=== PATIENT | female | born 1935 | race Caucasian/White ===

== ENCOUNTER 2018-10-02 22:08 | Emergency (ER) | payer MEDICARE ==
[~2018-10-02] VITALS: Ht 180.3 cm; Wt 95.3 kg
[~2018-10-02 22:08] MED LIST: ACTONEL35 MG; ARICEPT5 MG PO; ASPIRIN81 M1; ASPIRIN81 MG PO; ATORVASTATIN CA80 MG; CALCIUM 500+D1 EACH PO; CALTRATE 600 W1 EACH; CELEBREX100 MG PO; CLONIDINE HCL0.1 MG PO; CYCLOBENZAPRINE5 MG PO; EFFEXOR XR150 MG; ENALAPRIL MALE2.5 MG PO; FISH OIL 1,4001 EACH; LIDODERM700 MG TOP; MELATONIN3 M1; METFORMIN HCL1000 MG; MIRALAX119 GM; MYRBETRIQ50 MG PO; NAMENDA10 MG PO; OMEPRAZOLE40 MG PO; OSTEO BI-FLEX1 EAC1; PLAVIX75 MG PO; QUETIAPINE FUMA25 MG; ULTRAM50 MG PO; VENLAFAXINE HCL75 M2 PO; VESICARE5 MG PO; VITAMIN D250000 UNIT PO; VITAMIN D5000 UNIT
--- OUTSIDE RECORDS SUMMARY | 2018-10-02 22:12 | XMS REPORT | Continuity of Care Document ---
Author Author [facility] Interface Address Unknown Phone Unavailable Problems Problem Status Onset Date Classification Date Reported Comments Source CVA Active 02/19/2017 [facility] ACUTE EMBOLIC STROKE Active 02/19/2017 [facility] STROKE Active 02/19/2017 [facility] 787.20 Active 06/05/2014 [facility] UNK Active 06/05/2014 [facility] Allergic rhinitis Resolved Problem 03/13/2017 [facility] Anemia Resolved Problem 03/13/2017 [facility] Bilateral hearing loss Resolved Problem 03/13/2017 [facility] Dementia Resolved Problem 03/13/2017 [facility] DM (<span [id number]</span>) Resolved Problem 03/13/2017 [facility] Dysphagia Resolved Problem 03/13/2017 [facility] Fatigue Resolved Problem 03/13/2017 [facility] GERD - Gastro-esophageal reflux disease Resolved Problem 03/13/2017 [facility] HLD - Hyperlipidemia Resolved Problem 03/13/2017 [facility] HTN - Hypertension Resolved Problem 03/13/2017 [facility] Impacted cerumen<sup>1</sup> Resolved Problem 03/13/2017 Left ear [facility] Osteoporosis Resolved Problem 03/13/2017 [facility] Total Urinary Incontinence Resolved Problem 03/13/2017 [facility] Transient ischemic attack Resolved Problem 03/13/2017 [facility] Vitamin D insufficiency Resolved Problem 03/13/2017 [facility] Final: Other cerebrovascular disease 03/13/2017 [facility] Ischemic stroke Active Problem 03/13/2017 [facility] OTHER CEREBROVASCULAR DISEASE Active [facility] CEREBRAL INFARCTION, UNSPECIFIED Active [facility] Medications Medication Details Route Status Patient Instructions Ordering Provider Order Date Source Hydralazine Hydrochloride 10 MG Oral Tablet 10 mg=1 tab, PO, Q8H, # 90 tab, 0 Refill(s), Pharmacy: [facility] [place] [facility] Active 03/10/2017 [facility] Ergocalciferol 28117 UNT Oral Capsule 50,000 IntlUnit=1 cap, PO, qWeek, after completion of 5 doses, take 2000 IU of Vitamin D daily., # 5 cap, 0 Refill(s), Pharmacy: [facility] [place] [facility]3 Active 03/10/2017 [facility] enalapril 10 mg oral tablet 10 mg=1 tab, PO, Q12H, # 60 tab, 0 Refill(s), Pharmacy: [facility] Pharmacy [facility] Active 03/10/2017 [facility] atorvastatin 10 mg oral tablet 10 mg=1 tab, PO, Bedtime, # 30 tab, 0 Refill(s), Pharmacy: [facility] Pharmacy [facility] Active 03/10/2017 [facility] Tramadol 25 mg, 0.5 tab, Route: PO, Drug form: TAB, ONCE, Dosing Weight 92.472, kg, Start date: 03/09/17 14:49:00 CDT, Stop date: 03/09/17 14:49:00 CDTNotes: Not to exceed 400mg/day. (Same As: Ultram) Inactive 03/09/2017 [facility] tramadol hydrochloride 50 MG Oral Tablet 50 mg, 1 tab, Route: PO, Drug form: TAB, ONCE, Dosing Weight 92.472, kg, Start date: 03/08/17 11:58:00 CDT, Stop date: 03/08/17 11:58:00 CDTNotes: Not to exceed 400mg/day. (Same As: Ultram) Inactive 03/08/2017 [facility] Hydralazine 10 mg, 1 tab, Route: PO, Drug form: TAB, Q8H, Dosing Weight 92.472, kg, Start date: 03/06/17 8:00:00 CDT, Duration: 30 day, Stop date: 04/05/17 0:00:00 CSTNotes: (Same as: Apresoline) May interfere w/enteral feedings. Take With Food No Longer Active 03/06/2017 [facility] Docusate Sodium 100 MG Oral Capsule [Colace] 100 mg, 1 cap, Route: PO, Drug form: CAP, Bedtime, Dosing Weight 92.472, kg, Start date: 03/05/17 21:00:00 CDT, Duration: 30 day, Stop date: 04/03/17 21:00:00 CSTNotes: (Same as: Colace) (Do Not Crush) No Longer Active 03/06/2017 [facility] senna 8.6 mg oral tablet 8.6 mg, 1 tab, Route: PO, Drug Form: TAB, Dosing Weight 92.472, kg, BID, PRN as needed for constipation, Start date: 03/05/17 20:09:00 CDT, Duration: 30 day, Stop date: 04/04/17 20:08:00 CSTNotes: (Same as: Senokot) No Longer Active 03/06/2017 [facility] Vasotec 10 mg, 1 tab, Route: PO, Drug form: TAB, Q12H, Dosing Weight 86.364, kg, Start date: 03/04/17 21:00:00 CDT, Duration: 30 day, Stop date: 04/03/17 9:00:00 CSTNotes: (Same as: Vasotec) No Longer Active 03/05/2017 [facility] Dextrose 50% Syringe 25 mL, Route: IVP, Dosing Weight 86.364 kg, Start date: 03/04/17 13:45:00 CDT, Duration: 30 day, Stop date: 04/03/17 12:44:00 [employer], PRN Blood Glucose Results No Longer Active 03/04/2017 [facility] Vitamin D2 50,000 IntlUnit, 1 cap, Route: PO, Drug form: CAP, qWeek, Dosing Weight 86.364, kg, Start date: 02/26/17 10:00:00 CDT, Duration: 5 doses or times, Stop date: 03/26/17 9:00:00 CDTNotes: (Same as: Nguyen min D) "Do Not Crush" No Longer Active 02/26/2017 [facility] Vasotec 5 mg, 2 tab, Route: PO, Drug form: TAB, BID, Dosing Weight 86.364, kg, Start date: 02/25/17 9:00:00 CDT, Duration: 30 day, Stop date: 03/26/17 17:00:00 CDTNotes: (Same as: Vasotec) No Longer Active 02/25/2017 [facility] Lovenox 40 mg, 0.4 mL, Route: SUB-Q, Drug form: INJ, Daily, Dosing Weight 86.364, kg, Start date: 02/25/17 9:00:00 CDT, Duration: 30 day, Stop date: 03/26/17 9:00:00 CDTNotes: (Same as: Lovenox) No Longer Active 02/25/2017 [facility] aspirin 81 mg tablet, chewable 81 mg, 1 tab, Route: PO, Drug form: CHEWTAB, Daily, Dosing Weight 86.364, kg, Start date: 02/25/17 9:00:00 CDT, Duration: 30 day, Stop date: 03/26/17 9:00:00 CDTNotes: Take with food. No Longer Active 02/25/2017 [facility] Pt's own Mirabegron XR (Myrbetriq) 50 mg tab Pt's own Mirabegron XR (Myrbetriq) 50 mg tab, 1 tab, Drug form: MISC, Route: PO, Daily, 02/25/17 9:00:00 CDT, Duration: 30 day, Stop date: 03/26/17 9:00:00 CDT No Longer Active 02/25/2017 [facility] hydrocortisone acetate 25 MG Rectal Suppository 25 mg, 1 supp, Route: HI, BID, Drug form: SUPP, PRN Other -See Comment, Start date: 02/24/17 21:00:00 CDT, Stop date: 03/26/17 20:00:00 CDT, prnNotes: (Same as: Anusol-HC, Hemorrhoidal HC) No Longer Active 02/25/2017 [facility] famotidine 20 mg, 1 tab, Route: PO, Drug form: TAB, Bedtime, Dosing Weight 86.364, kg, Start date: 02/24/17 21:00:00 CDT, Duration: 30 day, Stop date: 03/25/17 21:00:00 CDTNotes: (Same as: Pepcid) No Longer Active 02/25/2017 [facility] Aricept 10 mg, 2 tab, Route: PO, Drug form: TAB, Bedtime, Dosing Weight 86.364, kg, Start date: 02/24/17 21:00:00 CDT, Duration: 30 day, Stop date: 03/25/17 21:00:00 CDTNotes: (Same as: Aricept) No Longer Active 02/25/2017 [facility] Pt's own Memantine XR (Namenda XR) 21mg capsule Pt's own Memantine XR (Namenda XR) 21mg capsule, 1 cap, Drug form: MISC, Route: PO, Bedtime, 02/24/17 21:00:00 CDT, Duration: 30 day, Stop date: 03/25/17 21:00:00 CDT No Longer Active 02/25/2017 [facility] Lipitor 10 mg, 1 tab, Route: PO, Drug form: TAB, Bedtime, Dosing Weight 86.364, kg, Start date: 02/24/17 21:00:00 CDT, Duration: 30 day, Stop date: 03/25/17 21:00:00 CDTNotes: (Same As: Lipitor) No Longer Active 02/25/2017 [facility] hydrocortisone acetate 25 MG Rectal Suppository [Anusol HC] 25 mg, 1 supp, Route: HI, BID, Drug form: SUPP, Start date: 02/24/17 20:00:00 CDT, Duration: 30 day, Stop date: 03/26/17 9:00:00 CDTNotes: (Same as: Anusol- HC, Hemorrhoidal HC) Inactive 02/25/2017 [facility] glucagon 1 mg, Route: IM, Drug form: PDR/INJ, PRN, Dosing Weight 86.364, kg, PRN Blood Glucose Results, Start date: 02/24/17 17:22:00 CDT, Duration: 30 day, Stop date: 03/26/17 17:21:00 CDT No Longer Active 02/24/2017 [facility] Dextrose 50% Syringe 25 gm, 50 mL, Route: IVP, Drug Form: INJ, Dosing Weight 86.364, kg, PRN, PRN Blood Glucose Results, Start date: 02/24/17 17:21:00 CDT, Duration: 30 day, Stop date: 03/26/17 17:20:00 CDT No Longer Active 02/24/2017 [facility] Humalog 6 unit, 0.06 mL, Route: SUB-Q, Drug form: SOLN, TID-Before Meals, Dosing Weight 86.364, kg, PRN Blood Glucose Results, Start date: 02/24/17 17:19:00 CDT, Duration: 30 day, Stop date: 03/26/17 17:18:00 C DTNotes: Roll in palms of hands gently; Do not shake `vigorously. (Same as: Humalog ) "Single Patient Use Only " WASTE: F/P - Black; E - Municipal Trash Bin Stable for 28 days at room temperature. Expires in days from Date No Longer Active 02/24/2017 [facility] Humalog 4 unit, 0.04 mL, Route: SUB-Q, Drug form: SOLN, TID-Before Meals, Dosing Weight 86.364, kg, PRN Blood Glucose Results, Start date: 02/24/17 17:18:00 CDT, Duration: 30 day, Stop date: 03/26/17 17:17:00 C DTNotes: Roll in palms of hands gently; Do not shake `vigorously. (Same as: Humalog ) "Single Patient Use Only " WASTE: F/P - Black; E - Municipal Trash Bin Stable for 28 days at room temperature. Expires in days from Date No Longer Active 02/24/2017 [facility] Humalog 10 unit, 0.1 mL, Route: SUB-Q, Drug form: SOLN, TID-Before Meals, Dosing Weight 86.364, kg, PRN Blood Glucose Results, Start date: 02/24/17 17:17:00 CDT, Duration: 30 day, Stop date: 03/26/17 17:16:00 C DTNotes: Roll in palms of hands gently; Do not shake `vigorously. (Same as: Humalog ) "Single Patient Use Only " WASTE: F/P - Black; E - Municipal Trash Bin Stable for 28 days at room temperature. Expires in days from Date No Longer Active 02/24/2017 [facility] SEROquel 12.5 mg, 0.5 tab, Route: PO, Drug form: TAB, Q12H, Dosing Weight 86.364, kg, PRN Agitation, Start date: 02/24/17 17:12:00 CDT, Duration: 30 day, Stop date: 03/26/17 17:11:00 CDTNotes: (Same as: SEROquel) No Longer Active 02/24/2017 [facility] Acetaminophen 650 mg, 2 tab, Route: PO, Drug form: TAB, Q4H, Dosing Weight 86.364, kg, PRN Pain Score 1-3, Start date: 02/24/17 15:24:00 CDT, Duration: 30 day, Stop date: 03/26/17 15:23:00 CDTNotes: Do not exceed 4 gm/day. (Same as: Tylenol) No Longer Active 02/24/2017 [facility] atorvastatin 10 mg oral tablet 10 mg=1 tab, PO, Bedtime, 0 Refill(s) On Hold 02/24/2017 [facility] Zofran 4 mg, 2 mL, Route: IV, Drug form: INJ, Q6H, Dosing Weight 86.364, kg, PRN Nausea, Start date: 02/22/17 16:44:00 CDT, Duration: 30 day, Stop date: 03/24/17 16:43:00 CDTNotes: (Same as: Zofran) MEDICATION WASTE Product Size: 4 mg Product Wasted: ___ mg No Longer Active 02/22/2017 [facility] Fluconazole 150 mg, 1.5 tab, Route: PO, Drug form: TAB, Daily, Dosing Weight 86.364, kg, Start date: 02/22/17 9:00:00 CDT, Duration: 5 day, Stop date: 02/26/17 9:00:00 CDTNotes: (Same as: Diflucan) No Longer Active 02/22/2017 [facility] 24 HR mirabegron 50 MG Extended Release Tablet [Myrbetriq] 50 mg, 1 tab, Route: PO, Daily, Dosing Weight 86.364, kg, Start date: 02/22/17 9:00:00 CDT, Duration: 30 day, Stop date: 03/23/17 9:00:00 CDT No Longer Active 02/22/2017 [facility] Pt's own Memantine XR (Namenda XR) 21mg capsule Pt's own Memantine XR (Namenda XR) 21mg capsule, 1 cap, Drug form: MISC, Route: PO, Bedtime, 02/21/17 21:00:00 CDT, Duration: 30 day, Stop date: 03/22/17 21:00:00 CDT No Longer Active 02/22/2017 [facility] Pt's own Mirabegron XR (Myrbetriq) 50 mg tab Pt's own Mirabegron XR (Myrbetriq) 50 mg tab, 1 tab, Drug form: MISC, Route: PO, Daily, 02/21/17 13:00:00 CDT, Duration: 30 day, Stop date: 03/23/17 9:00:00 CDT No Longer Active 02/21/2017 [facility] 24 HR mirabegron 50 MG Extended Release Tablet [Myrbetriq] 50 mg=1 tab, PO, Daily, # 30 tab, 0 Refill(s) On Hold 02/21/2017 [facility] Lovenox 40 mg, 0.4 mL, Route: SUB-Q, Drug form: INJ, [id number], Dosing Weight 86.364, kg, Start date: 02/21/17 9:30:00 CDT, Duration: 30 day, Stop date: 03/22/17 9:30:00 CDTNotes: (Same as: Lovenox) No Longer Active 02/21/2017 [facility] Aspirin 81 mg, 1 tab, Route: PO, Drug form: CHEWTAB, Daily, Dosing Weight 86.364, kg, Start date: 02/21/17 9:00:00 CDT, Duration: 30 day, Stop date: 03/22/17 9:00:00 CDTNotes: Take with food. No Longer Active 02/21/2017 [facility] Memantine 21 mg, Route: PO, Drug form: ERCAP, Bedtime, Dosing Weight 86.364, kg, Start date: 02/20/17 21:00:00 CDT, Duration: 30 day, Stop date: 03/21/17 21:00:00 CDT No Longer Active 02/21/2017 [facility] donepezil 10 mg, 2 tab, Route: PO, Drug form: TAB, Bedtime, Dosing Weight 86.364, kg, Start date: 02/20/17 21:00:00 CDT, Duration: 30 day, Stop date: 03/21/17 21:00:00 CDTNotes: (Same as: Aricept) No Longer Active 02/21/2017 [facility] Memantine 21mg capsule Memantine 21mg capsule, 1 cap, Drug form: MISC, Route: PO, Bedtime, 02/20/17 21:00:00 CDT, Duration: 30 day, Stop date: 03/21/17 21:00:00 CDT No Longer Active 02/21/2017 [facility] Lipitor 10 mg, Route: PO, Drug form: TAB, Bedtime, Dosing Weight 86.364, kg, Start date: 02/20/17 21:00:00 CDT, Duration: 30 day, Stop date: 03/21/17 21:00:00 CDT Inactive 02/21/2017 [facility] enalapril 5 mg, 2 tab, Route: PO, Drug form: TAB, BID, Dosing Weight 86.364, kg, Start date: 02/20/17 17:00:00 CDT, Duration: 30 day, Stop date: 03/22/17 9:00:00 CDTNotes: (Same as: Vasotec) No Longer Active 02/20/2017 [facility] Celebrex 200 mg, 1 cap, Route: PO, Drug form: CAP, BID, Dosing Weight 86.364, kg, Start date: 02/20/17 17:00:00 CDT, Duration: 30 day, Stop date: 03/22/17 9:00:00 CDTNotes: NSAID. Please check indication. Not for seizure. (Same As: CeleBREX) Inactive 02/20/2017 [facility] Omeprazole See Instructions, 2.5 mg PO Daily, 0 Refill(s) On Hold 02/20/2017 [facility] quetiapine 12.5 mg, 0.5 tab, Route: PO, Drug form: TAB, Q12H, Dosing Weight 86.364, kg, PRN Agitation, Start date: 02/20/17 15:47:00 CDT, Duration: 30 day, Stop date: 03/22/17 15:46:00 CDTNotes: (Same as: SEROq uel) No Longer Active 02/20/2017 [facility] influenza virus vaccine, inactivated 0.5 mL, Route: IM, Drug Form: SUSP, Daily, Start date: 02/20/17 9:00:00 CDT, Duration: 1 doses or times, Stop date: 02/20/17 9:00:00 CDTNotes: (Same as: Fluzone Quadrivalent, Fluarix Quadrivalent) For 3 years of age and older (0.5 mL IM) Shake well before use Inactive 02/20/2017 [facility] Streptococcus pneumoniae serotype 1 capsular antigen diphtheria [id number] protein conjugate vaccine / Streptococcus pneumoniae serotype 14 capsular antigen diphtheria [id number] protein conjugate vaccine / Streptococcus pneumoniae serotype 18C capsular antigen d 0.5 mL, Route: IM, Drug Form: INJ, Daily, Start date: 02/20/17 9:00:00 CDT, Duration: 1 doses or times, Stop date: 02/20/17 9:00:00 CDTNotes: Shake well prior to use (Same as: Prevnar 13) Inactive 02/20/2017 [facility] Saline Flush 0.9% 10 ml, Route: IVP, Drug Form: INJ, Dosing Weight 86.364, kg, Q12H, Start date: 02/20/17 9:00:00 CDT, Duration: 30 day, Stop date: 03/21/17 21:00:00 CDTNotes: (Same as: BD Posiflush) No Longer Active 02/20/2017 [facility] clopidogrel 75 mg, 1 tab, Route: PO, Drug form: TAB, Daily, Dosing Weight 86.364, kg, Start date: 02/20/17 9:00:00 CDT, Duration: 30 day, Stop date: 03/21/17 9:00:00 CDTNotes: (Same As: Plavix) No Longer Active 02/20/2017 [facility] Famotidine 20 mg, 1 tab, Route: PO, Drug form: TAB, Q12H, Dosing Weight 86.364, kg, Start date: 02/20/17 9:00:00 CDT, Duration: 30 day, Stop date: 03/21/17 21:00:00 CDTNotes: (Same as: Pepcid) No Longer Active 02/20/2017 [facility] Hydralazine 10 mg, 0.5 mL, Route: IV, Drug form: INJ, Q6H, Dosing Weight 86.364, kg, PRN Hypertension, Start date: 02/20/17 8:28:00 CDT, Duration: 30 day, Stop date: 03/22/17 8:27:00 CDTNotes: (Same as: Apresoline) Push over 5 minutes No Longer Active 02/20/2017 [facility] Insulin Lispro 4 unit, 0.04 mL, Route: SUB-Q, Drug form: SOLN, Bedtime, Dosing Weight 86.364, kg, PRN Blood Glucose Results, Start date: 02/20/17 8:27:00 CDT, Duration: 30 day, Stop date: 03/22/17 8:26:00 CDTNotes: Roll in palms of hands gently; Do not shake `vigorously. (Same as: Humalog ) "Single Patient Use Only " WASTE: F/P - Black; E - Municipal Trash Bin Stable for 28 days at room temperature. Expires in days from Date No Longer Active 02/20/2017 [facility] Glucagon 1 mg, Route: IM, Drug form: PDR/INJ, PRN, Dosing Weight 86.364, kg, PRN Blood Glucose Results, Start date: 02/20/17 8:27:00 CDT, Duration: 30 day, Stop date: 03/22/17 8:26:00 CDT No Longer Active 02/20/2017 [facility] Dextrose 50% Syringe 25 gm, 50 mL, Route: IVP, Drug Form: INJ, Dosing Weight 86.364, kg, PRN, PRN Blood Glucose Results, Start date: 02/20/17 8:27:00 CDT, Duration: 30 day, Stop date: 03/22/17 8:26:00 CDT No Longer Active 02/20/2017 [facility] Enoxaparin 40 mg, 0.4 mL, Route: SUB-Q, Drug form: INJ, [id number], Dosing Weight 86.364, kg, Start date: 02/20/17 0:00:00 CDT, Duration: 30 day, Stop date: 03/21/17 0:00:00 CDTNotes: (Same as: Lovenox) No Longer Active 02/20/2017 [facility] Saline Flush 0.9% 10 ml, Route: IVP, Drug Form: INJ, Dosing Weight 86.364, kg, PRN, PRN Line Flush, Start date: 02/19/17 23:03:00 CDT, Duration: 30 day, Stop date: 03/21/17 23:02:00 CDTNotes: (Same as: BD Posiflush) No Longer Active 02/20/2017 [facility] Labetalol 10 mg, 2 mL, Route: IVP, Drug form: INJ, Q10Min, Dosing Weight 86.364, kg, PRN Hypertension, For SBP > 180 mmHg and/or DBP > 105 mmHg, Priority: Routine, Start date: 02/19/17 23:03:00 CDT, Duration: 30 day, Stop date: 03/21/17 23:02:00 CDTNotes: (Same as: Normodyne, Trandate) Push over 2 minutes Give bolus over 2-3 minutes. No Longer Active 02/20/2017 [facility] Sodium Chloride 0.9% (Bolus) IV 250 mL, 250 ml/hr, Infuse Over: 1 hr, Route: IV, 250, Drug form: INJ, ONCE, Priority: STAT, Dosing Weight 86.364 kg, Start date: 02/19/17 23:03:00 CDT, Stop date: 02/19/17 23:03:00 CDT No Longer Active 02/20/2017 [facility] QUEtiapine 25 mg oral tablet 12.5 mg=0.5 tab, PO, Q12H, PRN Other -See Comment, 0 Refill(s) On Hold 02/19/2017 [facility] celecoxib 200 MG Oral Capsule [Celebrex] 200 mg=1 cap, PO, BID, 0 Refill(s) No Longer Active 02/19/2017 [facility] fluconazole 150 mg oral tablet 150 mg=1 tab, PO, ONCE, 0 Refill(s) No Longer Active 02/19/2017 [facility] 24 HR Memantine hydrochloride 21 MG Extended Release Capsule [Namenda] 21 mg=1 cap, PO, Bedtime, 0 Refill(s) On Hold 02/19/2017 [facility] Aspirin 300 MG Rectal Suppository 300 mg, 1 supp, Route: HI, Drug form: SUPP, ONCE, Dosing Weight 85.455, kg, Priority: STAT, Start date: 02/19/17 17:33:00 CDT, Stop date: 02/19/17 17:33:00 CDTNotes: Refrigerate. Inactive 02/19/2017 [facility] Saline Flush 0.9% 10 mL, Route: IVP, Drug Form: INJ, Dosing Weight 85.455, kg, PRN, PRN Line Flush, Start date: 02/19/17 17:16:00 CDT, Duration: 30 day, Stop date: 03/21/17 17:15:00 CDTNotes: preservative free. No Longer Active 02/19/2017 [facility] Sodium Chloride 0.9% (Bolus) IV 1,000 mL, 1000 ml/hr, Infuse Over: 1 hr, Route: IV, 1,000, Drug form: INJ, ONCE, Priority: STAT, Dosing Weight 85.455 kg, Start date: 02/19/17 17:16:00 CDT, Duration: 1 doses or times, Stop date: 02/19/17 17:16:00 CDT Inactive 02/19/2017 [facility] venlafaxine 150 mg oral tablet, extended release 150 mg=1 tab, PO, Daily, # 30 tab, 0 Refill(s) Active 06/13/2014 [facility] Vitamin D3 5000 intl units oral capsule 0 Refill(s) Active 06/13/2014 [facility] solifenacin succinate 10 MG Oral Tablet [VESICARE] 10 mg=1 tab, PO, Daily, # 30 tab, 0 Refill(s) Active 06/13/2014 [facility] Memantine hydrochloride 10 MG Oral Tablet [Namenda] 10 mg=1 tab, PO, BID, # 60 tab, 0 Refill(s) Active 06/13/2014 [facility] Fish Oil 1200 mg oral capsule 0 Refill(s) Active 06/13/2014 [facility] enalapril 5 mg oral tablet 5 mg=1 tab, PO, Daily, # 30 tab, 0 Refill(s) Active 06/13/2014 [facility] donepezil 10 mg oral tablet 10 mg, PO, Daily, # 30 tab, 0 Refill(s) Active 06/13/2014 [facility] Centrum Silver oral tablet 1 tab, PO, Daily, # 30 tab, 0 Refill(s) Active 06/13/2014 [facility] atorvastatin 80 mg oral tablet 80 mg=1 tab, PO, Bedtime, # 30 tab, 0 Refill(s) Active 06/13/2014 [facility] aspirin 0 Refill(s) Active 06/13/2014 [facility] risedronate sodium 35 MG Oral Tablet [Actonel] 35 mg=1 tab, PO, qWeek, # 4 tab, 0 Refill(s) Active 06/13/2014 [facility] Allergies, Adverse Reactions, Alerts Substance Category Reaction Severity Reaction type Status Date Reported Comments Source sulfa drugs Assertion Drug allergy Active [facility] Immunizations Immunization Date Given Site Status Last Updated Comments Source pneumococcal 13-valent vaccine 02/20/2017 Right deltoid completed [facility] influenza virus vaccine, inactivated 02/20/2017 Left deltoid completed [facility] Results Order Name Results Value Reference Range Date Interpretation Comments Source HEMATOLOGY MPV 8.7 fL 7.4 - 10.4 03/08/2017 [facility] Platelet 267 K/CMM 133 - 450 03/08/2017 [facility] RDW 13.4 % 11.5 - 14.5 03/08/2017 [facility] MCHC 33.8 g/dL 32.0 - 36.0 03/08/2017 [facility] MCH 29.6 pg 27.0 - 31.0 03/08/2017 [facility] Hgb 12.9 g/dL 12.0 - 16.0 03/08/2017 [facility] MCV 87.7 fL 80.0 - 98.0 03/08/2017 [facility] Hct 38.2 % 36.0 - 48.0 03/08/2017 [facility] HEMATOLOGY WBC 7.9 K/CMM 3.7 - 10.4 03/08/2017 [facility] HEMATOLOGY RBC 4.35 M/CMM 4.20 - 5.40 03/08/2017 [facility] HEMATOLOGY Basophils 0.6 % 0.0 - 1.0 03/08/2017 [facility] HEMATOLOGY Segs-Bands # 4.8 K/CMM 1.5 - 8.1 03/08/2017 [facility] HEMATOLOGY Lymphocytes # 2.2 K/CMM 1.0 - 5.5 03/08/2017 [facility] Monocytes # 0.5 K/CMM 0.0 - 0.8 03/08/2017 [facility] HEMATOLOGY Eosinophils # 0.3 K/CMM 0.0 - 0.5 03/08/2017 [facility] HEMATOLOGY Monocytes 5.8 % 2.0 - 12.0 03/08/2017 [facility] HEMATOLOGY Segs 61.4 % 45.0 - 75.0 03/08/2017 [facility] HEMATOLOGY Eosinophils 4.1 % 0.0 - 4.0 03/08/2017 [facility] HEMATOLOGY Lymphocytes 28.1 % 20.0 - 40.0 03/08/2017 [facility] Phosphorus 2.8 mg/dL 2.5 - 4.5 03/07/2017 [facility] Magnesium Lvl 2.0 mg/dL 1.8 - 2.4 03/07/2017 [facility] BUN 21 mg/dL 7 - 22 03/07/2017 [facility] Glucose Lvl 130 mg/dL 70 - 99 03/07/2017 [facility] Chloride Lvl 108 meq/L 95 - 109 03/07/2017 [facility] Potassium Lvl 3.9 meq/L 3.5 - 5.1 03/07/2017 [facility] Sodium Lvl 142 meq/L 135 - 145 03/07/2017 [facility] Creatinine Lvl 1.00 mg/dL 0.50 - 1.40 03/07/2017 [facility] CO2 25 meq/L 24 - 32 03/07/2017 [facility] Calcium Lvl 9.6 mg/dL 8.5 - 10.5 03/07/2017 [facility] CHEM PANEL AGAP 12.9 meq/L 10.0 - 20.0 03/07/2017 [facility] CHEM PANEL eGFR 53 mL/min/1.73m2 03/07/2017 Result Comment: The eGFR is calculated using the CKD-EPI formula. In most young, healthy individuals the eGFR will be >90 mL/min/1.73m2. The eGFR declines with age. An eGFR of 60-89 may be normal in some populations, particularly the elderly, for whom the CKD-EPI formula has not been extensively validated. Use of the eGFR is not recommended in the following populations: Individuals with unstable creatinine concentrations, including patients and those with serious co-morbid conditions. Patients with extremes in muscle mass or diet. The data above are obtained from the National Kid[employer] Disease Education Program (NKDEP) which additionally recommends that when the eGFR is used in patients with extremes of body mass index for purposes of drug dosing, the eGFR should be multiplied by the estimated BMI. [facility] CHEM PANEL Vitamin D, 25-OH, Total 23.7 ng/mL 30.0 - 100.0 02/25/2017 [facility] CHEM PANEL Phosphorus 2.7 mg/dL 2.5 - 4.5 02/25/2017 [facility] CHEM PANEL Albumin Lvl 3.6 g/dL 3.5 - 5.0 02/25/2017 [facility] CHEM PANEL eGFR 53 mL/min/1.73m2 02/25/2017 Result Comment: The eGFR is calculated using the CKD-EPI formula. In most young, healthy individuals the eGFR will be >90 mL/min/1.73m2. The eGFR declines with age. An eGFR of 60-89 may be normal in some populations, particularly the elderly, for whom the CKD-EPI formula has not been extensively validated. Use of the eGFR is not recommended in the following populations: Individuals with unstable creatinine concentrations, including patients and those with serious co-morbid conditions. Patients with extremes in muscle mass or diet. The data above are obtained from the National Kidney Disease Education Program (NKDEP) which additionally recommends that when the eGFR is used in patients with extremes of body mass index for purposes of drug dosing, the eGFR should be multiplied by the estimated BMI. [facility] CHEM PANEL CO2 26 meq/L 24 - 32 02/25/2017 [facility] CHEM PANEL Chloride Lvl 108 meq/L 95 - 109 02/25/2017 [facility] CHEM PANEL Creatinine Lvl 1.00 mg/dL 0.50 - 1.40 02/25/2017 [facility] CHEM PANEL Potassium Lvl 4.0 meq/L 3.5 - 5.1 02/25/2017 [facility] CHEM PANEL Sodium Lvl 141 meq/L 135 - 145 02/25/2017 [facility] CHEM PANEL Calcium Lvl 9.9 mg/dL 8.5 - 10.5 02/25/2017 [facility] CHEM PANEL Glucose Lvl 135 mg/dL 70 - 99 02/25/2017 [facility] CHEM PANEL BUN 22 mg/dL 7 - 22 02/25/2017 [facility] CHEM PANEL AGAP 11.0 meq/L 10.0 - 20.0 02/25/2017 [facility] HEMATOLOGY INR 0.98 0.85 - 1.17 02/25/2017 [facility] HEMATOLOGY PTT 30.9 s 22.9 - 35.8 02/25/2017 [facility] HEMATOLOGY PT 13.2 s 12.0 - 14.7 02/25/2017 [facility] HEMATOLOGY RDW 13.1 % 11.5 - 14.5 02/25/2017 [facility] MCHC 33.6 g/dL 32.0 - 36.0 02/25/2017 [facility] HEMATOLOGY RBC 4.47 M/CMM 4.20 - 5.40 02/25/2017 [facility] Hgb 13.0 g/dL 12.0 - 16.0 02/25/2017 [facility] HEMATOLOGY Platelet 270 K/CMM 133 - 450 02/25/2017 [facility] HEMATOLOGY MPV 9.1 fL 7.4 - 10.4 02/25/2017 [facility] MCH 29.2 pg 27.0 - 31.0 02/25/2017 [facility] Hct 38.8 % 36.0 - 48.0 02/25/2017 [facility] MCV 86.9 fL 80.0 - 98.0 02/25/2017 [facility] WBC 7.2 K/CMM 3.7 - 10.4 02/25/2017 [facility] HEMATOLOGY Eosinophils # 0.6 K/CMM 0.0 - 0.5 02/25/2017 [facility] Lymphocytes # 2.1 K/CMM 1.0 - 5.5 02/25/2017 [facility] HEMATOLOGY Segs 55.7 % 45.0 - 75.0 02/25/2017 [facility] HEMATOLOGY Monocytes 6.5 % 2.0 - 12.0 02/25/2017 [facility] Lymphocytes 28.8 % 20.0 - 40.0 02/25/2017 [facility] Eosinophils 8.5 % 0.0 - 4.0 02/25/2017 [facility] Monocytes # 0.5 K/CMM 0.0 - 0.8 02/25/2017 [facility] Basophils 0.5 % 0.0 - 1.0 02/25/2017 [facility] Segs-Bands # 4.0 K/CMM 1.5 - 8.1 02/25/2017 [facility] IMMUNOLOGY Prealbumin 28.9 mg/dL 18.0 - 45.0 02/25/2017 [facility] IMMUNOLOGY Prealbumin 24.7 mg/dL 18.0 - 45.0 02/24/2017 [facility] Carotid artery Doppler bilat US Carotid artery Doppler bilat US Patient Name: NII Ludwig ZAPATA : 1935; Age: 82 years y/o Female MR: [id number] CAROTID DOPPLER Clinical Indication: - left sided weakness Comparison: Left-sided weakness. The magnetic resonance imaging of the brain from today demonstrated an acute right coronal radiata infarct. The magnetic resonance imaging study of the brain performed today was reviewed. There are no prior carotid Doppler studies or other carotid studies available for review. TECHNIQUE: Castle-scale, color Doppler and spectral Doppler of the carotid arteries was performed. Any reported ICA stenoses indirectly reference the distal internal carotid diameter as the denominator for the stenosis measurement, utilizing consensus panel criteria. FINDINGS: CASTLE SCALE AND COLOR-FLOW: There are focal areas of linear plaquing bilaterally involving both common carotid arteries. There are small focal plaques throughout much of the left common carotid artery. There is no evidence of a significant stenosis. There is a small to moderate focal plaque involving the right carotid bulb with mild (on the order of 25%) stenosis by castle scale and color-flow imaging. There is a moderate plaque involving the left carotid bulb with mild (less than 30%) stenosis by castle scale and color-flow imaging. There is no evidence for hemodynamically significant stenosis by castle scale and color-flow imaging. * VELOCITY MEASUREMENTS RIGHT CAROTID SYSTEM : -Right internal carotid artery peak systolic velocity: Within normal limits, 67 cm/sec -ICA/CCA ratio (systolic velocity ratio): Within normal limits, 0.7 LEFT CAROTID SYSTEM : -Left internal carotid artery peak systolic velocity: Within normal limits, 72 cm/sec -ICA/CCA ratio (systolic velocity ratio): Within normal limits, 0.8 * VERTEBRAL ARTERIES: Both vertebral arteries were demonstrated. There is antegrade flow within both vertebral arteries. IMPRESSION: 1. There is scattered plaquing involving both common carotid arteries and focal plaque involving both internal carotid arteries. However, there is no evidence of a hemodynamically significant stenosis. By castle scale and color-flow imaging, there appear to be mild stenoses involving the carotid bulbs. Consensus panel Doppler US criteria for diagnosis of ICA stenosis: Stenosis (%) ICA PSV (cm/sec) ICA/CCA ratio <50 <125 <2.0 50-69 125-230 2.0-4.0 >70 but less than >230 >4.0 near occlusion Near occlusion High, low, or Variable undetectable SL: [id number] 02/20/2017 - - Read by: Scar Rocha MD Dictated Date/time: 02/20/17 12:48 Electronically Signed by: Scar Rocha MD 02/20/17 12:53 FINAL REPORT [facility] LIPIDS VLDL 48 02/20/2017 [facility] LIPIDS LDL (Calculated) 127 mg/dL <=99 mg/dL 02/20/2017 [facility] LIPIDS Trig 240 mg/dL <=149 mg/dL 02/20/2017 [facility] LIPIDS Chol 208 mg/dL <=199 mg/dL 02/20/2017 [facility] LIPIDS HDL 33 mg/dL >=61 mg/dL 02/20/2017 [facility] LIPIDS CHD Risk 6.30 3.90 - 5.80 02/20/2017 [facility] SPECIAL CHEMISTRY Hgb A1C 6.4 % <=5.6 % 02/20/2017 [facility] URINE AND STOOL UA Bili Negative *NA* (02/19/17 7:24 PM) Negative 02/20/2017 [facility] URINE AND STOOL UA Ketones Negative mg/dL Negative mg/dL 02/20/2017 [facility] URINE AND STOOL UA Sq Epi Occasional /LPF Few /LPF 02/20/2017 [facility] URINE AND STOOL UA Leuk Est Small *ABN* (02/19/17 7:24 PM) Negative 02/20/2017 [facility] URINE AND STOOL UA Nitrite Negative (02/19/17 7:24 PM) Negative 02/20/2017 [facility] URINE AND STOOL UA Blood Negative (02/19/17 7:24 PM) Negative 02/20/2017 [facility] URINE AND STOOL UA Amorph Kenia Occasional /HPF None Seen /HPF 02/20/2017 [facility] URINE AND STOOL UA Bacteria Occasional /HPF None Seen /HPF 02/20/2017 [facility] URINE AND STOOL UA RBC null 0 - 2 02/20/2017 [facility] URINE AND STOOL UA WBC 2 /HPF 0 - 5 02/20/2017 [facility] URINE AND STOOL UA Trans Epi 3 /LPF <=0 /LPF 02/20/2017 [facility] URINE AND STOOL UA Urobilinogen <=1.0 mg/dL 0.1 - 1.0 02/20/2017 [facility] URINE AND STOOL UA Color Ltyellow 02/20/2017 [facility] URINE AND STOOL UA Turbidity Marked *ABN* (02/19/17 7:24 PM) Clear 02/20/2017 [facility] URINE AND STOOL UA Glucose Negative mg/dL Negative mg/dL 02/20/2017 [facility] URINE AND STOOL UA Protein Negative mg/dL Negative mg/dL 02/20/2017 [facility] URINE AND STOOL UA pH 7.0 5.0 - 8.0 02/20/2017 [facility] URINE AND STOOL UA Spec Grav 1.010 <=1.030 02/20/2017 [facility] Brain wo contrast MRI Brain wo contrast MRI Clinical Indication: - left sided weakness. Patient has a 2-day history of left lower extremity weakness and difficulty ambulating, also with a left sided facial drooping.. Comparison: CT head stroke 02/19/2017 TECHNIQUE: Multiplanar multisequence imaging of the brain was obtained without contrast. FINDINGS: Right perez radiata restricted diffusion is noted extending inferiorly along the right posterior insula. Accompanying T2 and FLAIR changes are noted. Chronic right thalamic infarct changes. Periventricular scattered and confluent T2/FLAIR matter changes are identified. Mild generalized cerebral volume loss is noted. No extra-axial fluid, midline shift, mass or mass effect is identified. Areas of punctate low signal GRE signal are noted mostly along the bilateral parieto- occipital and right temporal regions with relative sparing of the brainstem and deep castle. Findings represent hemosiderin deposition from chronic microhemorrhage, nonspecific. Hypertensive encephalopathy, cerebral amyloid disease and embolic phenomena remain in the differential. Trace to mild mucosal opacification along the paranasal sinuses are noted. The mastoid air cells are clear. IMPRESSION: Acute right perez radiata lacunar ischemic infarct changes. Severe chronic ischemic small vessel changes. Chronic right thalamic infarct. Mild generalized cerebral volume loss. Multifocal punctate nonspecific microhemorrhages as above. SL: MAURO 02/20/2017 - - Read by: Aaron Rosario MD Dictated Date/time: 02/20/17 01:27 Electronically Signed by: Aaron Rosario MD 02/20/17 01:42 FINAL REPORT [facility] Brain wo contrast MRA Brain wo contrast MRA Patient Name: NII ZAPATA : 1935; Age: 82 years y/o Female MR: [id number] Study: Brain wo contrast MRA 02/19/2017 11:03 PM CDT Ordering Physician: Marshall Terry MD Clinical Indication: - left sided weakness. Patient has a 2-day history of left lower extremity weakness and difficulty ambulating, also with a left sided facial drooping.; Comparison: None Technique: Magnetic resonance angiography of the [place] was performed without contrast. 3D reconstructed images were created. FINDINGS: The right vertebral artery ends in a pica.There is origin to the right posterior cerebral artery. Flow is not seen within the left posterior communicating artery. Focal stenosis is seen to the distal left middle cerebral artery. Focal stenosis is seen to the distal A1 segment of the right anterior cerebral artery. No other evidence for intracranial stenosis or intracranial aneurysm. SL: TEN-NONA 02/20/2017 - - Read by: Carrillo Licona MD Dictated Date/time: 02/20/17 14:01 Electronically Signed by: Carrillo Licona MD 02/20/17 14:08 FINAL REPORT [facility] CARDIAC ENZYMES Troponin-I null 0.00 - 0.40 02/19/2017 [facility] CARDIAC ENZYMES Total CK 47 unit/L 12 - 191 02/19/2017 [facility] CARDIAC ENZYMES CK MB null 0.5 - 3.6 02/19/2017 [facility] CARDIAC ENZYMES CK MB Index null 0.0 - 2.5 02/19/2017 [facility] CHEM PANEL eGFR 42 mL/min/1.73m2 02/19/2017 Result Comment: The eGFR is calculated using the CKD-EPI formula. In most young, healthy individuals the eGFR will be >90 mL/min/1.73m2. The eGFR declines with age. An eGFR of 60-89 may be normal in some populations, particularly the elderly, for whom the CKD-EPI formula has not been extensively validated. Use of the eGFR is not recommended in the following populations: Individuals with unstable creatinine concentrations, including patients and those with serious co-morbid conditions. Patients with extremes in muscle mass or diet. The data above are obtained from the National Kidney Disease Education Program (NKDEP) which additionally recommends that when the eGFR is used in patients with extremes of body mass index for purposes of drug dosing, the eGFR should be multiplied by the estimated BMI. [facility] CHEM PANEL AGAP 13.1 meq/L 10.0 - 20.0 02/19/2017 [facility] CHEM PANEL Calcium Lvl 9.6 mg/dL 8.5 - 10.5 02/19/2017 [facility] CHEM PANEL Sodium Lvl 141 meq/L 135 - 145 02/19/2017 [facility] CHEM PANEL Creatinine Lvl 1.20 mg/dL 0.50 - 1.40 02/19/2017 [facility] CHEM PANEL Chloride Lvl 107 meq/L 95 - 109 02/19/2017 [facility] CHEM PANEL Potassium Lvl 4.1 meq/L 3.5 - 5.1 02/19/2017 [facility] CHEM PANEL CO2 25 meq/L 24 - 32 02/19/2017 [facility] CHEM PANEL BUN 13 mg/dL 7 - 22 02/19/2017 [facility] CHEM PANEL Glucose Lvl 179 mg/dL 70 - 99 02/19/2017 [facility] HEMATOLOGY PT 12.0 s 12.0 - 14.7 02/19/2017 [facility] HEMATOLOGY INR 0.87 0.85 - 1.17 02/19/2017 [facility] HEMATOLOGY MPV 8.5 fL 7.4 - 10.4 02/19/2017 [facility] HEMATOLOGY Platelet 250 K/CMM 133 - 450 02/19/2017 [facility] HEMATOLOGY RDW 13.0 % 11.5 - 14.5 02/19/2017 [facility] MCHC 34.2 g/dL 32.0 - 36.0 02/19/2017 [facility] MCH 29.7 pg 27.0 - 31.0 02/19/2017 [facility] HEMATOLOGY MCV 86.9 fL 80.0 - 98.0 02/19/2017 [facility] HEMATOLOGY Hct 39.5 % 36.0 - 48.0 02/19/2017 [facility] HEMATOLOGY Hgb 13.5 g/dL 12.0 - 16.0 02/19/2017 [facility] HEMATOLOGY RBC 4.55 M/CMM 4.20 - 5.40 02/19/2017 [facility] HEMATOLOGY WBC 6.7 K/CMM 3.7 - 10.4 02/19/2017 [facility] HEMATOLOGY PTT 28.4 s 22.9 - 35.8 02/19/2017 [facility] HEMATOLOGY Lymphocytes # 2.0 K/CMM 1.0 - 5.5 02/19/2017 [facility] HEMATOLOGY Segs-Bands # 3.8 K/CMM 1.5 - 8.1 02/19/2017 [facility] HEMATOLOGY Basophils 0.7 % 0.0 - 1.0 02/19/2017 [facility] Eosinophils 7.8 % 0.0 - 4.0 02/19/2017 [facility] Eosinophils # 0.5 K/CMM 0.0 - 0.5 02/19/2017 [facility] Monocytes # 0.4 K/CMM 0.0 - 0.8 02/19/2017 [facility] Monocytes 5.5 % 2.0 - 12.0 02/19/2017 [facility] Lymphocytes 29.8 % 20.0 - 40.0 02/19/2017 [facility] Segs 56.2 % 45.0 - 75.0 02/19/2017 [facility] Chest 1view DX Chest 1view DX 1 VIEW CXR. PORTABLE EXAM 5:37 PM HISTORY: Left-sided weakness. Possible stroke.. COMPARISON: 07/18/2012 chest x-ray.. The lungs are clear with normal pulmonary vasculature. No pleural abnormality. Cardiomediastinal silhouette normal. Bones intact. IMPRESSION: Normal exam. END OF IMPRESSION SL: WR2-M 02/19/2017 - - Read by: Devonte Blood MD Dictated Date/time: 02/19/17 17:51 Electronically Signed by: Devonte Blood MD 02/19/17 17:52 FINAL REPORT [facility] Brain Stroke wo contrast CT Brain Stroke wo contrast CT Clinical Indication: - in window, left side weakness, left facial droop. Comparison: None. TECHNIQUE: CT images were obtained from the foramen magnum to the vertex without the use of intravenous contrast on a multidetector CT. CT imaging was performed with exposure control parameters to reduce radiation dose. Coronal and sagittal reconstructions were obtained. CT radiation dose DLP: 901.26 mGy-cm FINDINGS: BRAIN PARENCHYMA: Moderate involutional changes are noted in the brain.. Marked periventricular lucency suggestive of severe microvascular white matter disease.. There is a small lucency in the right midbrain on image 30 of series 401B which may represent acute/subacute infarct. There are no intra-axial or extra-axial fluid collections, intraventricular or intraparenchymal hemorrhage. VENTRICLES: The lateral ventricles, third and fourth ventricles appear unremarkable. The basilar cisterns are normal. ORBITS, MASTOIDS AND PARANASAL SINUSES: The visualized orbits are unremarkable. Mild mucosal thickening in the bilateral ethmoid air cells and right sphenoid sinus. The mastoid air cells are clear. SKULL: There are no osseous abnormalities. IMPRESSION: Vagure small lucency in the right mid brain may represent an acute/subacute infarct. Severe microvascular white matter disease. Magnetic resonance imaging of the brain is recommended for further evaluation. The charge nurse Angeles was informed at 5:58 PM on 02/19/2017. SL: MIKE 02/19/2017 - - Read by: Maria D Kaur MD Dictated Date/time: 02/19/17 17:42 Electronically Signed by: Maria D Kaur MD 02/19/17 17:59 FINAL REPORT [facility] Vital Signs Vital Sign Value Date Comments Source Temperature Oral (F) 98.2 F 03/10/2017 [facility] Heart Rate 65 03/10/2017 [facility] Systolic (mm Hg) 152 03/10/2017 [facility] Diastolic (mm Hg) 90 03/10/2017 [facility] Heart Rate 64 03/10/2017 [facility] Systolic (mm Hg) 119 03/10/2017 [facility] Diastolic (mm Hg) 62 03/10/2017 [facility] Heart Rate 64 03/10/2017 [facility] Systolic (mm Hg) 149 03/10/2017 [facility] Diastolic (mm Hg) 70 03/10/2017 [facility] Temperature Oral (F) 97.8 F 03/10/2017 [facility] Temperature Oral (F) 98 F 03/09/2017 [facility] Respitory Rate 18 03/09/2017 [facility] Respitory Rate 18 03/08/2017 [facility] Respitory Rate 18 03/08/2017 [facility] Weight 92.472 02/26/2017 [facility] BMI Calculated 25.82 02/24/2017 [facility] Height 182.88 cm 02/24/2017 [facility] Weight 86.364 02/24/2017 [facility] Temperature Oral (F) 97.5 F 02/24/2017 [facility] Heart Rate 99 02/24/2017 [facility] Systolic (mm Hg) 126 02/24/2017 [facility] Diastolic (mm Hg) 77 02/24/2017 [facility] Respitory Rate 18 02/24/2017 [facility] Temperature Oral (F) 98.1 F 02/24/2017 [facility] Heart Rate 66 02/24/2017 [facility] Respitory Rate 18 02/24/2017 [facility] Systolic (mm Hg) 156 02/24/2017 [facility] Diastolic (mm Hg) 73 02/24/2017 [facility] Heart Rate 65 02/24/2017 [facility] Temperature Oral (F) 97.8 F 02/24/2017 [facility] Systolic (mm Hg) 132 02/24/2017 [facility] Diastolic (mm Hg) 72 02/24/2017 [facility] Respitory Rate 18 02/24/2017 [facility] BMI Calculated 25.82 02/20/2017 [facility] Weight 86.364 02/20/2017 [facility] Height 182.88 cm 02/20/2017 [facility] BMI Calculated 25.82 02/19/2017 [facility] Height 182.88 cm 02/19/2017 [facility] Weight 86.364 02/19/2017 [facility] Diastolic (mm Hg) 58 06/14/2014 [facility] Systolic (mm Hg) 136 06/14/2014 [facility] Respitory Rate 17 06/14/2014 [facility] Diastolic (mm Hg) 55 06/14/2014 [facility] Respitory Rate 15 06/14/2014 [facility] Systolic (mm Hg) 138 06/14/2014 [facility] Respitory Rate 14 06/14/2014 [facility] Systolic (mm Hg) 141 06/14/2014 [facility] Diastolic (mm Hg) 63 06/14/2014 [facility] Weight 85.455 06/13/2014 [facility] Height 180.34 cm 06/13/2014 [facility] BMI Calculated 26.28 06/13/2014 [facility] Encounters Location Location Details Encounter Type Encounter Number Reason For Visit Attending Provider ADM Date DC Date Status Source [facility] Bedded Outpatient [id number] Lex Ziegler 06/14/2014 06/14/2014 [facility] Inpatient [id number] Irvin Menchaca 02/19/2017 02/24/2017 [facility] [id number] Christiano Courtney Jr 02/24/2017 03/10/2017 [facility] Procedures Procedure Code Date Perfomer Comments Source Cholecystectomy [id number] [facility] Tonsillectomy [id number] [facility] Vaginal delivery, medical personnel present<sup>1</sup> [id number] vaginal delilveries [facility] ORIF - Open reduction and internal fixation of fracture [id number] [facility]
--- OUTSIDE RECORDS SUMMARY | 2018-10-02 22:13 | XMS REPORT ---
Author Author [facility] Address Unknown Phone Unavailable Care Team Providers Care Administrative Asst Name Role Phone Margartio UPTON Unavailable Unavailable Payers Payer Name Policy Type Policy Number Effective Date Expiration Date Problems This patient has no known problems. Allergies, Adverse Reactions, Alerts Allergy Name Allergy Type Status Severity Reaction(s) Onset Date Inactive Date Treating Clinician Comments Sulfa (Sulfonamide Antibiotics) DA Active U 2017-06-09 00:00:00 pentazocine DA Active U 2017-06-09 00:00:00 Medications This patient has no known medications. Results Test Description Test Time Test Comments Text Results Atomic Results Result Comments CHEST SINGLE (PORTABLE) [facility] [address] [address] Patient Name: BENNYNII MR #: [id number] : 1935 Age/Sex: 82/F Req #: [id number] Adm Physician: Ordered by: TARIQ ALEXANDER Report #: [id number] Location: ER Room/Bed: Procedure: [id number] DX/CHEST SINGLE (PORTABLE) Exam Date: 04/15/17 Exam Time: 1255 REPORT STATUS: Signed PROCEDURE: CHEST SINGLE (PORTABLE) COMPARISON: 03/24/2016. INDICATIONS: ALTERED MENTAL STATUS, ELEVATED BLOOD SUGAR FINDINGS: Lungs are well-inflated. No focal airspace consolidation, pleural effusion, or pneumothorax. Stable cardiomediastinal contour with tortuosity and atherosclerotic calcification of the thoracic aorta. Normal heart size for technique. No overt pulmonary edema. No acute osseous abnormality. CONCLUSION: No acute cardiopulmonary abnormality. Dictated by: Martha Avelar M.D. on 04/15/2017 at 13:22 Electronically approved by: Martha Avelar M.D. on 04/15/2017 at 13:22 Dictated By: MARTHA AVELAR MD 1322 Transcribed By: MICHAEL on 04/15/17 1322 COPY TO: TARIQ ALEXANDER
--- OUTSIDE RECORDS SUMMARY | 2018-10-02 22:13 | XMS REPORT | Summary of Care ---
Author Author [facility] Organization [facility] Address Unknown Phone Unavailable Encounter HQ Alethea(TAD) [id number] Date(s): 02/19/17 - 02/24/17 [facility] [address] [place] [address]- [phone] Discharge Disposition: DC/DISC TO REHAB Attending Physician: Irvin Menchaca DO Admitting Physician: Irvin Menchaca DO Vital Signs 1 2 3 Most recent to oldest [Reference Range]: 182.88 cm (02/19/17 9:37 PM) 182.88 cm (02/19/17 5:34 PM) Height 97.5 DegF (02/24/17 11:50 AM) 98.1 DegF (02/24/17 11:48 AM) 97.8 DegF (02/24/17 8:18 AM) Temperature Oral [96.4-99.1 DegF] 126/77 mmHg (02/24/17 11:50 AM) 156/73 mmHg *HI* (02/24/17 11:48 AM) 132/72 mmHg (02/24/17 8:18 AM) Blood Pressure [90-140/60-90 mmHg] 18 BRMIN (02/24/17 11:50 AM) 18 BRMIN (02/24/17 11:48 AM) 18 BRMIN (02/24/17 8:18 AM) Respiratory Rate [14-20 BRMIN] 99 bpm (02/24/17 11:50 AM) 66 bpm (02/24/17 11:48 AM) 65 bpm (02/24/17 8:18 AM) Peripheral Pulse Rate [60-100 bpm] 86.364 kg (02/19/17 9:37 PM) 86.364 kg (02/19/17 5:34 PM) Weight 25.82 m2 (02/19/17 9:37 PM) 25.82 m2 (02/19/17 5:34 PM) Body Mass Index Problem List Condition Effective Dates Status Health Status Informant Allergic Resolved rhinitis(Confirmed) Anemia(Confirmed) Resolved Bilateral hearing Resolved loss(Confirmed) Dementia(Confirmed) Resolved DM (diabetes Resolved mellitus)(Confirmed) Dysphagia(Confirmed) Resolved Fatigue(Confirmed) Resolved GERD - Resolved Gastro-esophageal reflux disease(Confirmed) HLD - Resolved Hyperlipidemia(Confi rmed) HTN - Resolved Hypertension(Confirm ed) Impacted Resolved cerumen(Confirmed)1 Ischemic Active stroke(Confirmed) Osteoporosis(Confirm Resolved ed) Total Urinary Resolved Incontinence(Confirm ed) Transient ischemic Resolved attack(Confirmed) Vitamin D Resolved insufficiency(Confir med) 1Left ear Allergies, Adverse Reactions, Alerts Substance Reaction Severity Status sulfa drugs Active Medications Pt's own Mirabegron XR (Myrbetriq) 50 mg tab Pt's own Mirabegron XR (Myrbetriq) 50 mg tab, 1 tab, Drug form: MISC, Route: PO, Daily, 02/21/17 13:00:00 CDT, Duration: 30 day, Stop date: 06/08 9:00:00 CDT Start Date: 02/21/17 Stop Date: 02/24/17 Status: Discontinued Anusol-HC 25 mg rectal suppository 25 mg, 1 supp, Route: IN, BID, Drug form: SUPP, Start date: 02/24/17 20:00:00 CD T, Duration: 30 day, Stop date: 03/26/17 9:00:00 CDT Notes: (Same as: Anusol-HC, Hemorrhoidal HC) Start Date: 02/24/17 Stop Date: 02/24/17 Status: Canceled aspirin 81 mg, 1 tab, Route: PO, Drug form: CHEWTAB, Daily, Dosing Weight 86.364, kg, St art date: 02/21/17 9:00:00 CDT, Duration: 30 day, Stop date: 03/22/17 9:00:00 CD T Notes: Take with food. Start Date: 02/21/17 Stop Date: 02/24/17 Status: Discontinued aspirin 300 mg rectal suppository 300 mg, 1 supp, Route: IN, Drug form: SUPP, ONCE, Dosing Weight 85.455, kg, Prio rity: STAT, Start date: 02/19/17 17:33:00 CDT, Stop date: 02/19/17 17:33:00 CDT Notes: Refrigerate. Start Date: 02/19/17 Stop Date: 02/19/17 Status: Completed atorvastatin 10 mg oral tablet 10 mg=1 tab, PO, Bedtime, 0 Refill(s) Start Date: 02/24/17 Status: Suspended CeleBREX 200 mg, 1 cap, Route: PO, Drug form: CAP, BID, Dosing Weight 86.364, kg, Start d ate: 02/20/17 17:00:00 CDT, Duration: 30 day, Stop date: 03/22/17 9:00:00 CDT Notes: NSAID. Please check indication. Not for seizure. (Same As: CeleBREX) Start Date: 02/20/17 Stop Date: 02/20/17 Status: Discontinued CeleBREX 200 mg oral capsule 200 mg=1 cap, PO, BID, 0 Refill(s) Start Date: 02/19/17 Stop Date: 02/20/17 Status: Discontinued clopidogrel 75 mg, 1 tab, Route: PO, Drug form: TAB, Daily, Dosing Weight 86.364, kg, Start date: 02/20/17 9:00:00 CDT, Duration: 30 day, Stop date: 03/21/17 9:00:00 CDT Notes: (Same As: Plavix) Start Date: 02/20/17 Stop Date: 02/22/17 Status: Discontinued Dextrose 50% Syringe 25 gm, 50 mL, Route: IVP, Drug Form: INJ, Dosing Weight 86.364, kg, PRN, PRN Blo od Glucose Results, Start date: 02/20/17 8:27:00 CDT, Duration: 30 day, Stop toya e: 03/22/17 8:26:00 CDT Start Date: 02/20/17 Stop Date: 02/24/17 Status: Discontinued Dextrose 50% Syringe 12.5 gm, 25 mL, Route: IVP, Drug Form: INJ, Dosing Weight 86.364, kg, PRN, PRN B lood Glucose Results, Start date: 02/20/17 8:27:00 CDT, Duration: 30 day, Stop d ate: 03/22/17 8:26:00 CDT Start Date: 02/20/17 Stop Date: 02/24/17 Status: Discontinued donepezil 10 mg, 2 tab, Route: PO, Drug form: TAB, Bedtime, Dosing Weight 86.364, kg, Star t date: 02/20/17 21:00:00 CDT, Duration: 30 day, Stop date: 03/21/17 21:00:00 CD T Notes: (Same as: Aricept) Start Date: 02/20/17 Stop Date: 02/24/17 Status: Discontinued enalapril 5 mg, 2 tab, Route: PO, Drug form: TAB, BID, Dosing Weight 86.364, kg, Start toya e: 02/20/17 17:00:00 CDT, Duration: 30 day, Stop date: 03/22/17 9:00:00 CDT Notes: (Same as: Vasotec) Start Date: 02/20/17 Stop Date: 02/24/17 Status: Discontinued enoxaparin 40 mg, 0.4 mL, Route: SUB-Q, Drug form: INJ, [id number], Dosing Weight 86.364, kg, Start date: 02/20/17 0:00:00 CDT, Duration: 30 day, Stop date: 03/21/17 0:00:00 CDT Notes: (Same as: Lovenox) Start Date: 02/20/17 Stop Date: 02/21/17 Status: Discontinued famotidine 20 mg, 1 tab, Route: PO, Drug form: TAB, Q12H, Dosing Weight 86.364, kg, Start d ate: 02/20/17 9:00:00 CDT, Duration: 30 day, Stop date: 03/21/17 21:00:00 CDT Notes: (Same as: Pepcid) Start Date: 02/20/17 Stop Date: 02/24/17 Status: Discontinued fluconazole 150 mg, 1.5 tab, Route: PO, Drug form: TAB, Daily, Dosing Weight 86.364, kg, Sta rt date: 02/22/17 9:00:00 CDT, Duration: 5 day, Stop date: 02/26/17 9:00:00 CDT Notes: (Same as: Diflucan) Start Date: 02/22/17 Stop Date: 02/21/17 Status: Canceled fluconazole 150 mg oral tablet 150 mg=1 tab, PO, ONCE, 0 Refill(s) Start Date: 02/19/17 Stop Date: 02/24/17 Status: Discontinued glucagon 1 mg, Route: IM, Drug form: PDR/INJ, PRN, Dosing Weight 86.364, kg, PRN Blood Gl ucose Results, Start date: 02/20/17 8:27:00 CDT, Duration: 30 day, Stop date: 8:26:00 CDT Start Date: 02/20/17 Stop Date: 02/24/17 Status: Discontinued hydrALAZINE 10 mg, 0.5 mL, Route: IV, Drug form: INJ, Q6H, Dosing Weight 86.364, kg, PRN Hyp ertension, Start date: 02/20/17 8:28:00 CDT, Duration: 30 day, Stop date: 8:27:00 CDT Notes: (Same as: Apresoline)Push over 5 minutes Start Date: 02/20/17 Stop Date: 02/24/17 Status: Discontinued influenza virus vaccine, inactivated 0.5 mL, Route: IM, Drug Form: SUSP, Daily, Start date: 02/20/17 9:00:00 CDT, Dur ation: 1 doses or times, Stop date: 02/20/17 9:00:00 CDT Notes: (Same as: Fluzone Quadrivalent, Fluarix Quadrivalent)For 3 years of age a nd older (0.5 mL IM)Shake well before use Start Date: 02/20/17 Stop Date: 02/20/17 Status: Completed insulin lispro 4 unit, 0.04 mL, Route: SUB-Q, Drug form: SOLN, Bedtime, Dosing Weight 86.364, k g, PRN Blood Glucose Results, Start date: 02/20/17 8:27:00 CDT, Duration: 30 day , Stop date: 03/22/17 8:26:00 CDT Notes: Roll in palms of hands gently; Do not shake `vigorously. (Same as: Humal og )"Single Patient Use Only "WASTE: F/P - Black; E - Municipal Trash Bin Stabl e for 28 days at room temperature.Expires in days from Date Start Date: 02/20/17 Stop Date: 02/24/17 Status: Discontinued insulin lispro 1 unit, 0.01 mL, Route: SUB-Q, Drug form: SOLN, Bedtime, Dosing Weight 86.364, k g, PRN Blood Glucose Results, Start date: 02/20/17 8:27:00 CDT, Duration: 30 day , Stop date: 03/22/17 8:26:00 CDT Notes: Roll in palms of hands gently; Do not shake `vigorously. (Same as: Jenna og )"Single Patient Use Only "WASTE: F/P - Black; E - Municipal Trash Bin Stabl e for 28 days at room temperature.Expires in days from Date Start Date: 02/20/17 Stop Date: 02/24/17 Status: Discontinued insulin lispro 2 unit, 0.02 mL, Route: SUB-Q, Drug form: SOLN, Bedtime, Dosing Weight 86.364, k g, PRN Blood Glucose Results, Start date: 02/20/17 8:27:00 CDT, Duration: 30 day , Stop date: 03/22/17 8:26:00 CDT Notes: Roll in palms of hands gently; Do not shake `vigorously. (Same as: Jenna )"Single Patient Use Only "WASTE: F/P - Black; E - Municipal Trash Bin Stabl e for 28 days at room temperature.Expires in days from Date Start Date: 02/20/17 Stop Date: 02/24/17 Status: Discontinued insulin lispro 3 unit, 0.03 mL, Route: SUB-Q, Drug form: SOLN, Bedtime, Dosing Weight 86.364, k g, PRN Blood Glucose Results, Start date: 02/20/17 8:27:00 CDT, Duration: 30 day , Stop date: 03/22/17 8:26:00 CDT Notes: Roll in palms of hands gently; Do not shake `vigorously. (Same as: Humal og )"Single Patient Use Only "WASTE: F/P - Black; E - Municipal Trash Bin Stabl e for 28 days at room temperature.Expires in days from Date Start Date: 02/20/17 Stop Date: 02/24/17 Status: Discontinued insulin lispro 10 unit, 0.1 mL, Route: SUB-Q, Drug form: SOLN, TID-Before Meals, Dosing Weight 86.364, kg, PRN Blood Glucose Results, Start date: 02/20/17 8:27:00 CDT, Duratio n: 30 day, Stop date: 03/22/17 8:26:00 CDT Notes: Roll in palms of hands gently; Do not shake `vigorously. (Same as: Humal og )"Single Patient Use Only "WASTE: F/P - Black; E - Municipal Trash Bin Stabl e for 28 days at room temperature.Expires in days from Date Start Date: 02/20/17 Stop Date: 02/24/17 Status: Discontinued insulin lispro 8 unit, 0.08 mL, Route: SUB-Q, Drug form: SOLN, TID-Before Meals, Dosing Weight 86.364, kg, PRN Blood Glucose Results, Start date: 02/20/17 8:27:00 CDT, Duratio n: 30 day, Stop date: 03/22/17 8:26:00 CDT Notes: Roll in palms of hands gently; Do not shake `vigorously. (Same as: Humal og )"Single Patient Use Only "WASTE: F/P - Black; E - Municipal Trash Bin Stabl e for 28 days at room temperature.Expires in days from Date Start Date: 02/20/17 Stop Date: 02/24/17 Status: Discontinued insulin lispro 6 unit, 0.06 mL, Route: SUB-Q, Drug form: SOLN, TID-Before Meals, Dosing Weight 86.364, kg, PRN Blood Glucose Results, Start date: 02/20/17 8:27:00 CDT, Duratio n: 30 day, Stop date: 03/22/17 8:26:00 CDT Notes: Roll in palms of hands gently; Do not shake `vigorously. (Same as: Humal og )"Single Patient Use Only "WASTE: F/P - Black; E - Municipal Trash Bin Stabl e for 28 days at room temperature.Expires in days from Date Start Date: 02/20/17 Stop Date: 02/24/17 Status: Discontinued insulin lispro 4 unit, 0.04 mL, Route: SUB-Q, Drug form: SOLN, TID-Before Meals, Dosing Weight 86.364, kg, PRN Blood Glucose Results, Start date: 02/20/17 8:27:00 CDT, Duratio n: 30 day, Stop date: 03/22/17 8:26:00 CDT Notes: Roll in palms of hands gently; Do not shake `vigorously. (Same as: Humal og )"Single Patient Use Only "WASTE: F/P - Black; E - Municipal Trash Bin Stabl e for 28 days at room temperature.Expires in days from Date Start Date: 02/20/17 Stop Date: 02/24/17 Status: Discontinued insulin lispro 2 unit, 0.02 mL, Route: SUB-Q, Drug form: SOLN, TID-Before Meals, Dosing Weight 86.364, kg, PRN Blood Glucose Results, Start date: 02/20/17 8:27:00 CDT, Duratio n: 30 day, Stop date: 03/22/17 8:26:00 CDT Notes: Roll in palms of hands gently; Do not shake `vigorously. (Same as: Humal og )"Single Patient Use Only "WASTE: F/P - Black; E - Municipal Trash Bin Stabl e for 28 days at room temperature.Expires in days from Date Start Date: 02/20/17 Stop Date: 02/24/17 Status: Discontinued labetalol 10 mg, 2 mL, Route: IVP, Drug form: INJ, Q10Min, Dosing Weight 86.364, kg, PRN H ypertension, For SBP > 180 mmHg and/or DBP > 105 mmHg, Priority: Routine, Start date: 02/19/17 23:03:00 CDT, Duration: 30 day, Stop date: 03/21/17 23:02:00 CDT Notes: (Same as: Normodyne, Trandate)Push over 2 minutes Give bolus over 2-3 mi nutes. Start Date: 02/19/17 Stop Date: 02/24/17 Status: Discontinued Lipitor 10 mg, Route: PO, Drug form: TAB, Bedtime, Dosing Weight 86.364, kg, Start date: 02/20/17 21:00:00 CDT, Duration: 30 day, Stop date: 03/21/17 21:00:00 CDT Start Date: 02/20/17 Stop Date: 02/20/17 Status: Deleted Lipitor 10 mg, 1 tab, Route: PO, Drug form: TAB, Bedtime, Dosing Weight 86.364, kg, Star t date: 02/20/17 21:00:00 CDT, Duration: 30 day, Stop date: 03/21/17 21:00:00 CD T Notes: (Same As: Lipitor) Start Date: 02/20/17 Stop Date: 02/24/17 Status: Discontinued Lovenox 40 mg, 0.4 mL, Route: SUB-Q, Drug form: INJ, [id number], Dosing Weight 86.364, kg, Start date: 02/21/17 9:30:00 CDT, Duration: 30 day, Stop date: 03/22/17 9:30:00 CDT Notes: (Same as: Lovenox) Start Date: 02/21/17 Stop Date: 02/24/17 Status: Discontinued memantine 21 mg, Route: PO, Drug form: ERCAP, Bedtime, Dosing Weight 86.364, kg, Start toya e: 02/20/17 21:00:00 CDT, Duration: 30 day, Stop date: 03/21/17 21:00:00 CDT Start Date: 02/20/17 Stop Date: 02/21/17 Status: Deleted Memantine 21mg capsule Memantine 21mg capsule, 1 cap, Drug form: MISC, Route: PO, Bedtime, 02/20/17 21: 00:00 CDT, Duration: 30 day, Stop date: 03/21/17 21:00:00 CDT Start Date: 02/20/17 Stop Date: 02/21/17 Status: Discontinued Myrbetriq 50 mg oral tablet, extended release 50 mg=1 tab, PO, Daily, # 30 tab, 0 Refill(s) Start Date: 02/21/17 Status: Suspended Myrbetriq 50 mg oral tablet, extended release 50 mg, 1 tab, Route: PO, Daily, Dosing Weight 86.364, kg, Start date: 02/22/17 9 :00:00 CDT, Duration: 30 day, Stop date: 03/23/17 9:00:00 CDT Start Date: 02/22/17 Stop Date: 02/21/17 Status: Deleted Namenda XR 21 mg oral capsule, extended release 21 mg=1 cap, PO, Bedtime, 0 Refill(s) Start Date: 02/19/17 Status: Suspended omeprazole See Instructions, 2.5 mg PO Daily, 0 Refill(s) Start Date: 02/20/17 Status: Suspended pneumococcal 13-valent vaccine 0.5 mL, Route: IM, Drug Form: INJ, Daily, Start date: 02/20/17 9:00:00 CDT, Dura tion: 1 doses or times, Stop date: 02/20/17 9:00:00 CDT Notes: Shake well prior to use (Same as: Prevnar 13) Start Date: 02/20/17 Stop Date: 02/20/17 Status: Completed Pt's own Memantine XR (Namenda XR) 21mg capsule Pt's own Memantine XR (Namenda XR) 21mg capsule, 1 cap, Drug form: MISC, Route: PO, Bedtime, 02/21/17 21:00:00 CDT, Duration: 30 day, Stop date: 03/22/17 21:00:00 CDT Start Date: 02/21/17 Stop Date: 02/24/17 Status: Discontinued QUEtiapine 12.5 mg, 0.5 tab, Route: PO, Drug form: TAB, Q12H, Dosing Weight 86.364, kg, PRN Agitation, Start date: 02/20/17 15:47:00 CDT, Duration: 30 day, Stop date: 02/22 06/08 15:46:00 CDT Notes: (Same as: SEROquel) Start Date: 02/20/17 Stop Date: 02/24/17 Status: Discontinued QUEtiapine 25 mg oral tablet 12.5 mg=0.5 tab, PO, Q12H, PRN Other -See Comment, 0 Refill(s) Start Date: 02/19/17 Status: Suspended Saline Flush 0.9% 10 mL, Route: IVP, Drug Form: INJ, Dosing Weight 85.455, kg, PRN, PRN Line Flush , Start date: 02/19/17 17:16:00 CDT, Duration: 30 day, Stop date: 03/21/17 17:15 :00 CDT Notes: preservative free. Start Date: 02/19/17 Stop Date: 02/24/17 Status: Discontinued Saline Flush 0.9% 10 ml, Route: IVP, Drug Form: INJ, Dosing Weight 86.364, kg, PRN, PRN Line Flush , Start date: 02/19/17 23:03:00 CDT, Duration: 30 day, Stop date: 03/21/17 23:02 :00 CDT Notes: (Same as: BD Posiflush) Start Date: 02/19/17 Stop Date: 02/24/17 Status: Discontinued Saline Flush 0.9% 10 ml, Route: IVP, Drug Form: INJ, Dosing Weight 86.364, kg, Q12H, Start date: 9:00:00 CDT, Duration: 30 day, Stop date: 03/21/17 21:00:00 CDT Notes: (Same as: BD Posiflush) Start Date: 02/20/17 Stop Date: 02/24/17 Status: Discontinued Sodium Chloride 0.9% (Bolus) IV 1,000 mL, 1000 ml/hr, Infuse Over: 1 hr, Route: IV, 1,000, Drug form: INJ, ONCE, Priority: STAT, Dosing Weight 85.455 kg, Start date: 02/19/17 17:16:00 CDT, Dur ation: 1 doses or times, Stop date: 02/19/17 17:16:00 CDT Start Date: 02/19/17 Stop Date: 02/19/17 Status: Completed Sodium Chloride 0.9% (Bolus) IV 250 mL, 250 ml/hr, Infuse Over: 1 hr, Route: IV, 250, Drug form: INJ, ONCE, Prio rity: STAT, Dosing Weight 86.364 kg, Start date: 02/19/17 23:03:00 CDT, Stop toya e: 02/19/17 23:03:00 CDT Start Date: 02/19/17 Stop Date: 02/20/17 Status: Completed Zofran 4 mg, 2 mL, Route: IV, Drug form: INJ, Q6H, Dosing Weight 86.364, kg, PRN Nausea , Start date: 02/22/17 16:44:00 CDT, Duration: 30 day, Stop date: 03/24/17 16:43 :00 CDT Notes: (Same as: Zofran) MEDICATION WASTE Product Size: 4 mgProduct Was ariadna: ___ mg Start Date: 02/22/17 Stop Date: 02/24/17 Status: Discontinued Results ELECTROLYTES Most recent to 1 oldest [Reference Range]: Sodium Lvl [135-145 141 mEq/L mEq/L] (02/19/17 5:22 PM) Potassium Lvl 4.1 mEq/L [3.5-5.1 mEq/L] (02/19/17 5:22 PM) Chloride Lvl [95-109 107 mEq/L mEq/L] (02/19/17 5:22 PM) CO2 [24-32 mEq/L] 25 mEq/L (02/19/17 5:22 PM) AGAP [10.0-20.0 13.1 mEq/L mEq/L] (02/19/17 5:22 PM) CHEM PANEL Most recent to 1 oldest [Reference Range]: Creatinine Lvl 1.20 mg/dL [0.50-1.40 mg/dL] (02/19/17 5:22 PM) eGFR 42 mL/min/1.73m2 1 *NA* (02/19/17 5:22 PM) BUN [7-22 mg/dL] 13 mg/dL (02/19/17 5:22 PM) Glucose Lvl [70-99 179 mg/dL mg/dL] *HI* (02/19/17 5:22 PM) Calcium Lvl 9.6 mg/dL [8.5-10.5 mg/dL] (02/19/17 5:22 PM) 1Result Comment: The eGFR is calculated using the [...] from the National Kid[employer] Disease Education Program ( NKDEP) which additionally recommends that when the eGFR is used in patients with extremes of body mass index for purposes of drug dosing, the eGFR should be mul tiplied by the estimated BMI. CARDIAC ENZYMES Most recent to 1 oldest [Reference Range]: Total CK [12-191 47 unit/L unit/L] (02/19/17 5:22 PM) CK MB [0.5-3.6 <0.5 ng/mL ng/mL] (02/19/17 5:22 PM) CK MB Index <1.1 [0.0-2.5] (02/19/17 5:22 PM) Troponin-I <0.02 ng/mL [0.00-0.40 ng/mL] (02/19/17 5:22 PM) LIPIDS Most recent to 1 oldest [Reference Range]: CHD Risk [3.90-5.80] 6.30 *HI* (02/20/17 5:58 AM) Chol [<=199 mg/dL] 208 mg/dL *HI* (02/20/17 5:58 AM) Trig [<=149 mg/dL] 240 mg/dL *HI* (02/20/17 5:58 AM) HDL [>=61 mg/dL] 33 mg/dL *LOW* (02/20/17 5:58 AM) LDL (Calculated) 127 mg/dL [<=99 mg/dL] *HI* (02/20/17 5:58 AM) VLDL 48 *NA* (02/20/17 5:58 AM) SPECIAL CHEMISTRY Most recent to 1 oldest [Reference Range]: Hgb A1C [<=5.6 %] 6.4 % *HI* (02/20/17 5:58 AM) URINE AND STOOL Most recent to 1 oldest [Reference Range]: UA Turbidity [Clear] Marked *ABN* (02/19/17 7:24 PM) UA Color Ltyellow *NA* (02/19/17 7:24 PM) UA pH [5.0-8.0] 7.0 (02/19/17 7:24 PM) UA Spec Grav 1.010 [<=1.030] (02/19/17 7:24 PM) UA Glucose [Negative Negative mg/dL mg/dL] *NA* (02/19/17 7:24 PM) UA Blood [Negative] Negative (02/19/17 7:24 PM) UA Ketones [Negative Negative mg/dL mg/dL] *NA* (02/19/17 7:24 PM) UA Protein [Negative Negative mg/dL mg/dL] (02/19/17 7:24 PM) UA Urobilinogen <=1.0 mg/dL [0.1-1.0 mg/dL] *NA* (02/19/17 7:24 PM) UA Bili [Negative] Negative *NA* (02/19/17 7:24 PM) UA Leuk Est Small [Negative] *ABN* (02/19/17 7:24 PM) UA Nitrite Negative [Negative] (02/19/17 7:24 PM) UA WBC [0-5 /HPF] 2 /HPF (02/19/17 7:24 PM) UA RBC [0-2 /HPF] <1 /HPF (02/19/17 7:24 PM) UA Bacteria [None Occasional /HPF Seen /HPF] *NA* (02/19/17 7:24 PM) UA Sq Epi [Few /LPF] Occasional /LPF *NA* (02/19/17 7:24 PM) UA Amorph Kenia [None Occasional /HPF Seen /HPF] *NA* (02/19/17 7:24 PM) UA Trans Epi [<=0 3 /LPF /LPF] *HI* (02/19/17 7:24 PM) HEMATOLOGY Most recent to 1 oldest [Reference Range]: WBC [3.7-10.4 K/CMM] 6.7 K/CMM (02/19/17 5:22 PM) RBC [4.20-5.40 4.55 M/CMM M/CMM] (02/19/17 5:22 PM) Hgb [12.0-16.0 g/dL] 13.5 g/dL (02/19/17 5:22 PM) Hct [36.0-48.0 %] 39.5 % (02/19/17 5:22 PM) MCV [80.0-98.0 fL] 86.9 fL (02/19/17 5:22 PM) MCH [27.0-31.0 pg] 29.7 pg (02/19/17 5:22 PM) MCHC [32.0-36.0 34.2 g/dL g/dL] (02/19/17 5:22 PM) RDW [11.5-14.5 %] 13.0 % (02/19/17 5:22 PM) Platelet [133-450 250 K/CMM K/CMM] (02/19/17 5:22 PM) MPV [7.4-10.4 fL] 8.5 fL (02/19/17 5:22 PM) Segs [45.0-75.0 %] 56.2 % (02/19/17 5:22 PM) Lymphocytes 29.8 % [20.0-40.0 %] (02/19/17 5:22 PM) Monocytes [2.0-12.0 5.5 % %] (02/19/17 5:22 PM) Eosinophils [0.0-4.0 7.8 % %] *HI* (02/19/17 5:22 PM) Basophils [0.0-1.0 0.7 % %] (02/19/17 5:22 PM) Segs-Bands # 3.8 K/CMM [1.5-8.1 K/CMM] (02/19/17 5:22 PM) Lymphocytes # 2.0 K/CMM [1.0-5.5 K/CMM] (02/19/17 5:22 PM) Monocytes # [0.0-0.8 0.4 K/CMM K/CMM] (02/19/17 5:22 PM) Eosinophils # 0.5 K/CMM [0.0-0.5 K/CMM] (02/19/17 5:22 PM) PT [12.0-14.7 12.0 seconds seconds] (02/19/17 5:22 PM) INR [0.85-1.17] 0.87 (02/19/17 5:22 PM) PTT [22.9-35.8 28.4 seconds seconds] (02/19/17 5:22 PM) Immunizations Given and Recorded Vaccine Date Status Refusal Reason influenza virus vaccine, inactivated 02/20/17 Given pneumococcal 13-valent vaccine 02/20/17 Given Procedures Procedure Date Related Diagnosis Body Site Cholecystectomy ORIF - Open reduction and internal fixation of fracture Tonsillectomy Vaginal delivery, medical personnel present1 1 5 vaginal delilveries Social History Social History Type Response Alcohol Never Smoking Status Never smoker; Exposure to Tobacco Smoke None; Cigarette Smoking Last 365 Days No; Reg Smoking Cessation Counseling No Assessment and Plan Extracted from: Title: Discharge Summary * Author: Irvin Menchaca DO Date: 02/24/17 Discharge Information Discharge Plan Discharge Summary Plan Discharge Status: stable. Discharge instructions given: to patient. Discharge disposition: discharge to retirement facility Inpatient rehabilitation. Prescriptions: continue same medications, reviewed. 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 Course Improving. Education and Follow-up Counseled: patient. 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
--- OUTSIDE RECORDS SUMMARY | 2018-10-02 22:13 | XMS REPORT | Summary of Care ---
Author Organization Unknown Address Unknown Phone Unavailable Encounter HQ [facility]the[facility](TAD) [id number] Date(s): 06/14/14 - 06/14/14 [facility] [id number] Den[address] Discharge Disposition: Home Physician Attending: Lex Ziegler MD Physician Admitting: Lex Ziegler MD Physician_Referring: Lex Ziegler MD Reason for Visit 787.20 Vital Signs 1 2 3 Most recent to oldest [Reference Range]: 180.34 cm (06/13/14 9:59 AM) Height 136 mmHg (06/14/14 10:30 AM) 138 mmHg (06/14/14 10:15 AM) 141 mmHg *HI* (06/14/14 9:55 AM) Systolic Blood Pressure [90-140 mmHg] 58 mmHg *LOW* (06/14/14 10:30 AM) 55 mmHg *LOW* (06/14/14 10:15 AM) 63 mmHg (06/14/14 9:55 AM) Diastolic Blood Pressure [60-90 mmHg] 17 BRMIN (06/14/14 10:30 AM) 15 BRMIN (06/14/14 10:15 AM) 14 BRMIN (06/14/14 9:55 AM) Respiratory Rate [14-20 BRMIN] 85.455 kg (06/13/14 9:59 AM) Weight 26.28 m2 (06/13/14 9:59 AM) Body Mass Index Problem List Condition Effective Dates Status Health Status Informant Allergic Resolved rhinitis(Confirmed) Anemia(Confirmed) Resolved Bilateral hearing Resolved loss(Confirmed) Dementia(Confirmed) Resolved DM (diabetes Resolved mellitus)(Confirmed) Dysphagia(Confirmed) Resolved Fatigue(Confirmed) Resolved GERD - Resolved Gastro-esophageal reflux disease(Confirmed) HLD - Resolved Hyperlipidemia(Confi rmed) HTN - Resolved Hypertension(Confirm ed) Impacted Resolved cerumen(Confirmed)1 Osteoporosis(Confirm Resolved ed) Total Urinary Resolved Incontinence(Confirm ed) Transient ischemic Resolved attack(Confirmed) Vitamin D Resolved insufficiency(Confir med) 1Left ear Allergies, Adverse Reactions, Alerts Substance Reaction Severity Status sulfa drugs Active Medications Actonel 35 mg oral tablet 35 mg=1 tab, PO, qWeek, # 4 tab, 0 Refill(s) Start Date: 06/13/14 Status: Ordered aspirin 0 Refill(s) Start Date: 06/13/14 Status: Ordered atorvastatin 80 mg oral tablet 80 mg=1 tab, PO, Bedtime, # 30 tab, 0 Refill(s) Start Date: 06/13/14 Status: Ordered Centrum Silver oral tablet 1 tab, PO, Daily, # 30 tab, 0 Refill(s) Start Date: 06/13/14 Status: Ordered donepezil 10 mg oral tablet 10 mg, PO, Daily, # 30 tab, 0 Refill(s) Start Date: 06/13/14 Status: Ordered enalapril 5 mg oral tablet 5 mg=1 tab, PO, Daily, # 30 tab, 0 Refill(s) Start Date: 06/13/14 Status: Ordered Fish Oil 1200 mg oral capsule 0 Refill(s) Start Date: 06/13/14 Status: Ordered Namenda 10 mg oral tablet 10 mg=1 tab, PO, BID, # 60 tab, 0 Refill(s) Start Date: 06/13/14 Status: Ordered venlafaxine 150 mg oral tablet, extended release 150 mg=1 tab, PO, Daily, # 30 tab, 0 Refill(s) Start Date: 06/13/14 Status: Ordered VESIcare 10 mg oral tablet 10 mg=1 tab, PO, Daily, # 30 tab, 0 Refill(s) Start Date: 06/13/14 Status: Ordered Vitamin D3 5000 intl units oral capsule 0 Refill(s) Start Date: 06/13/14 Status: Ordered Medications Administered During Your Visit No data available for this section Immunizations No data available for this section Procedures Procedure Type Body Site Date of Procedure Related Diagnosis Cholecystectomy Tonsillectomy Vaginal delivery, medical personnel present1 1 5 vaginal delilveries Social History Social History Type Response Alcohol Use: Never Smoking Status Never smoker, Exposure to Tobacco Smoke None, Cigarette Smoking Last 365 Days No, Reg Smoking Cessation Counseling No
--- OUTSIDE RECORDS SUMMARY | 2018-10-02 22:13 | XMS REPORT | Summary of Care ---
Author Author [facility] Organization [facility] Address Unknown Phone Unavailable Encounter HQ Alethea(FIN) [id number] Date(s): 02/24/17 - 03/10/17 [facility] [id number] [place] [address]- [phone] Final: Other cerebrovascular disease Discharge Disposition: Home or Self Care Attending Physician: Christiano Lyons MD Admitting Physician: Christiano Lyons MD Vital Signs 1 2 3 Most recent to oldest [Reference Range]: 182.88 cm (02/24/17 3:15 PM) Height 98.2 DegF (03/10/17 7:47 AM) 97.8 DegF (03/09/17 8:25 PM) 98 DegF (03/09/17 4:00 PM) Temperature Oral [96.4-99.1 DegF] 152/90 mmHg *HI* (03/10/17 7:47 AM) 119/62 mmHg (03/09/17 11:57 PM) 149/70 mmHg *HI* (03/09/17 8:25 PM) Blood Pressure [90-140/60-90 mmHg] 18 BRMIN (03/08/17 8:00 PM) 18 BRMIN (03/08/17 4:00 PM) 18 BRMIN (03/08/17 8:58 AM) Respiratory Rate [14-20 BRMIN] 65 bpm (03/10/17 7:47 AM) 64 bpm (03/09/17 11:57 PM) 64 bpm (03/09/17 8:25 PM) Peripheral Pulse Rate [60-100 bpm] 92.472 kg (02/26/17 10:41 AM) 86.364 kg (02/24/17 3:15 PM) Weight 25.82 m2 (02/24/17 3:15 PM) Body Mass Index Problem List Condition [...] 9:00:00 CDT, Duration: 30 day, Stop date: 03/26 9:00:00 CDT Start Date: 02/25/17 Stop Date: 03/10/17 Status: Discontinued acetaminophen 650 mg, 2 tab, Route: PO, Drug form: TAB, Q4H, Dosing Weight 86.364, kg, PRN Kalyn n Score 1-3, Start date: 02/24/17 15:24:00 CDT, Duration: 30 day, Stop date: 09/06 15:23:00 CDT Notes: Do not exceed 4 gm/day. (Same as: Tylenol) Start Date: 02/24/17 Stop Date: 03/10/17 Status: Discontinued Aricept 10 mg, 2 tab, Route: PO, Drug form: TAB, Bedtime, Dosing Weight 86.364, kg, Star t date: 02/24/17 21:00:00 CDT, Duration: 30 day, Stop date: 03/25/17 21:00:00 CD T Notes: (Same as: Aricept) Start Date: 02/24/17 Stop Date: 03/10/17 Status: Discontinued aspirin 81 mg tablet, chewable 81 mg, 1 tab, Route: PO, Drug form: CHEWTAB, Daily, Dosing Weight 86.364, kg, St art date: 02/25/17 9:00:00 CDT, Duration: 30 day, Stop date: 03/26/17 9:00:00 CD T Notes: Take with food. Start Date: 02/25/17 Stop Date: 03/10/17 Status: Discontinued atorvastatin 10 mg oral tablet 10 mg=1 tab, PO, Bedtime, # 30 tab, 0 Refill(s), Pharmacy: [facility] #[facility] Start Date: 03/10/17 Stop Date: 04/09/17 Status: Ordered Colace 100 mg oral capsule 100 mg, 1 cap, Route: PO, Drug form: CAP, Bedtime, Dosing Weight 92.472, kg, Sta rt date: 03/05/17 21:00:00 CDT, Duration: 30 day, Stop date: 04/03/17 21:00:[address] Notes: (Same as: Colace) (Do Not Crush) Start Date: 03/05/17 Stop Date: 03/10/17 Status: Discontinued Dextrose 50% Syringe 25 gm, 50 mL, Route: IVP, Drug Form: INJ, Dosing Weight 86.364, kg, PRN, PRN Blo od Glucose Results, Start date: 02/24/17 17:21:00 CDT, Duration: 30 day, Stop da te: 03/26/17 17:20:00 CDT Start Date: 02/24/17 Stop Date: 03/10/17 Status: Discontinued Dextrose 50% Syringe 12.5 gm, 25 mL, Route: IVP, Drug Form: INJ, Dosing Weight 86.364, kg, PRN, PRN B lood Glucose Results, Start date: 02/24/17 17:21:00 CDT, Duration: 30 day, Stop date: 03/26/17 17:20:00 CDT Start Date: 02/24/17 Stop Date: 03/04/17 Status: Discontinued Dextrose 50% Syringe 25 mL, Route: IVP, Dosing Weight 86.364 kg, Start date: 03/04/17 13:45:00 CDT, D uration: 30 day, Stop date: 04/03/17 12:44:00 REED [employer], PRN Blood Glucose Results Start Date: 03/04/17 Stop Date: 03/10/17 Status: Discontinued enalapril 10 mg oral tablet 10 mg=1 tab, PO, Q12H, # 60 tab, 0 Refill(s), Pharmacy: [facility] [place] [facility] Start Date: 03/10/17 Stop Date: 04/09/17 Status: Ordered ergocalciferol 50,000 intl units oral capsule 50,000 IntlUnit=1 cap, PO, qWeek, after completion of 5 doses, take 2000 IU of V itamin D daily., # 5 cap, 0 Refill(s), Pharmacy: [facility] [place] [facility] Start Date: 03/10/17 Status: Ordered famotidine 20 mg, 1 tab, Route: PO, Drug form: TAB, Bedtime, Dosing Weight 86.364, kg, Star t date: 02/24/17 21:00:00 CDT, Duration: 30 day, Stop date: 03/25/17 21:00:00 CD T Notes: (Same as: Pepcid) Start Date: 02/24/17 Stop Date: 03/10/17 Status: Discontinued glucagon 1 mg, Route: IM, Drug form: PDR/INJ, PRN, Dosing Weight 86.364, kg, PRN Blood Gl ucose Results, Start date: 02/24/17 17:22:00 CDT, Duration: 30 day, Stop date: 05/26/16 17:21:00 CDT Start Date: 02/24/17 Stop Date: 03/10/17 Status: Discontinued Humalog 6 unit, 0.06 mL, Route: SUB-Q, Drug form: SOLN, TID-Before Meals, Dosing Weight 86.364, kg, PRN Blood Glucose Results, Start date: 02/24/17 17:19:00 CDT, Durati on: 30 day, Stop date: 03/26/17 17:18:00 CDT Notes: Roll in palms of hands gently; Do not shake `vigorously. (Same as: Jenna og )"Single Patient Use Only "WASTE: F/P - Black; E - Municipal Trash Bin Stabl e for 28 days at room temperature.Expires in days from Date Start Date: 02/24/17 Stop Date: 03/10/17 Status: Discontinued Humalog 4 unit, 0.04 mL, Route: SUB-Q, Drug form: SOLN, TID-Before Meals, Dosing Weight 86.364, kg, PRN Blood Glucose Results, Start date: 02/24/17 17:18:00 CDT, Durati on: 30 day, Stop date: 03/26/17 17:17:00 CDT Notes: Roll in palms of hands gently; Do not shake `vigorously. (Same as: Humal og )"Single Patient Use Only "WASTE: F/P - Black; E - Municipal Trash Bin Stabl e for 28 days at room temperature.Expires in days from Date Start Date: 02/24/17 Stop Date: 03/10/17 Status: Discontinued Humalog 4 unit, 0.04 mL, Route: SUB-Q, Drug form: SOLN, Bedtime, Dosing Weight 86.364, k g, PRN Blood Glucose Results, Start date: 02/24/17 17:18:00 CDT, Duration: 30 da y, Stop date: 03/26/17 17:17:00 CDT Notes: Roll in palms of hands gently; Do not shake `vigorously. (Same as: Humal og )"Single Patient Use Only "WASTE: F/P - Black; E - Municipal Trash Bin Stabl e for 28 days at room temperature.Expires in days from Date Start Date: 02/24/17 Stop Date: 03/10/17 Status: Discontinued Humalog 3 unit, 0.03 mL, Route: SUB-Q, Drug form: SOLN, Bedtime, Dosing Weight 86.364, k g, PRN Blood Glucose Results, Start date: 02/24/17 17:18:00 CDT, Duration: 30 da y, Stop date: 03/26/17 17:17:00 CDT Notes: Roll in palms of hands gently; Do not shake `vigorously. (Same as: Humal og )"Single Patient Use Only "WASTE: F/P - Black; E - Municipal Trash Bin Stabl e for 28 days at room temperature.Expires in days from Date Start Date: 02/24/17 Stop Date: 03/10/17 Status: Discontinued Humalog 2 unit, 0.02 mL, Route: SUB-Q, Drug form: SOLN, TID-Before Meals, Dosing Weight 86.364, kg, PRN Blood Glucose Results, Start date: 02/24/17 17:18:00 CDT, Durati on: 30 day, Stop date: 03/26/17 17:17:00 CDT Notes: Roll in palms of hands gently; Do not shake `vigorously. (Same as: Humal og )"Single Patient Use Only "WASTE: F/P - Black; E - Municipal Trash Bin Stabl e for 28 days at room temperature.Expires in days from Date Start Date: 02/24/17 Stop Date: 03/10/17 Status: Discontinued Humalog 2 unit, 0.02 mL, Route: SUB-Q, Drug form: SOLN, Bedtime, Dosing Weight 86.364, k g, PRN Blood Glucose Results, Start date: 02/24/17 17:18:00 CDT, Duration: 30 da y, Stop date: 03/26/17 17:17:00 CDT Notes: Roll in palms of hands gently; Do not shake `vigorously. (Same as: Jenna og )"Single Patient Use Only "WASTE: F/P - Black; E - Municipal Trash Bin Stabl e for 28 days at room temperature.Expires in days from Date Start Date: 02/24/17 Stop Date: 03/10/17 Status: Discontinued Humalog 10 unit, 0.1 mL, Route: SUB-Q, Drug form: SOLN, TID-Before Meals, Dosing Weight 86.364, kg, PRN Blood Glucose Results, Start date: 02/24/17 17:17:00 CDT, Durati on: 30 day, Stop date: 03/26/17 17:16:00 CDT Notes: Roll in palms of hands gently; Do not shake `vigorously. (Same as: Humal og )"Single Patient Use Only "WASTE: F/P - Black; E - Municipal Trash Bin Stabl e for 28 days at room temperature.Expires in days from Date Start Date: 02/24/17 Stop Date: 03/10/17 Status: Discontinued Humalog 1 unit, 0.01 mL, Route: SUB-Q, Drug form: SOLN, Bedtime, Dosing Weight 86.364, k g, PRN Blood Glucose Results, Start date: 02/24/17 17:17:00 CDT, Duration: 30 da y, Stop date: 03/26/17 17:16:00 CDT Notes: Roll in palms of hands gently; Do not shake `vigorously. (Same as: Humal og )"Single Patient Use Only "WASTE: F/P - Black; E - Municipal Trash Bin Stabl e for 28 days at room temperature.Expires in days from Date Start Date: 02/24/17 Stop Date: 03/10/17 Status: Discontinued Humalog 8 unit, 0.08 mL, Route: SUB-Q, Drug form: SOLN, TID-Before Meals, Dosing Weight 86.364, kg, PRN Blood Glucose Results, Start date: 02/24/17 17:19:00 CDT, Durati on: 30 day, Stop date: 03/26/17 17:18:00 CDT Notes: Roll in palms of hands gently; Do not shake `vigorously. (Same as: Humal og )"Single Patient Use Only "WASTE: F/P - Black; E - Municipal Trash Bin Stabl e for 28 days at room temperature.Expires in days from Date Start Date: 02/24/17 Stop Date: 03/10/17 Status: Discontinued hydrALAZINE 10 mg, 1 tab, Route: PO, Drug form: TAB, Q8H, Dosing Weight 92.472, kg, Start da te: 03/06/17 8:00:00 CDT, Duration: 30 day, Stop date: 04/05/17 0:00:00 RE[employer] Notes: (Same as: Apresoline) May interfere w/enteral feedings.Take With Food Start Date: 03/06/17 Stop Date: 03/10/17 Status: Discontinued hydrALAZINE 10 mg oral tablet 10 mg=1 tab, PO, Q8H, # 90 tab, 0 Refill(s), Pharmacy: [facility] #3 Start Date: 03/10/17 Stop Date: 04/09/17 Status: Ordered hydrocortisone 25 mg rectal suppository 25 mg, 1 supp, Route: NH, BID, Drug form: SUPP, PRN Other -See Comment, Start da te: 02/24/17 21:00:00 CDT, Stop date: 03/26/17 20:00:00 CDT, prn Notes: (Same as: Anusol-HC, Hemorrhoidal HC) Start Date: 02/24/17 Stop Date: 03/10/17 Status: Discontinued Lipitor 10 mg, 1 tab, Route: PO, Drug form: TAB, Bedtime, Dosing Weight 86.364, kg, Star t date: 02/24/17 21:00:00 CDT, Duration: 30 day, Stop date: 03/25/17 21:00:00 CD T Notes: (Same As: Lipitor) Start Date: 02/24/17 Stop Date: 03/10/17 Status: Discontinued Lovenox 40 mg, 0.4 mL, Route: SUB-Q, Drug form: INJ, Daily, Dosing Weight 86.364, kg, St art date: 02/25/17 9:00:00 CDT, Duration: 30 day, Stop date: 03/26/17 9:00:00 CD T Notes: (Same as: Lovenox) Start Date: 02/25/17 Stop Date: 03/10/17 Status: Discontinued Pt's own Memantine XR (Namenda XR) 21mg capsule Pt's own Memantine XR (Namenda XR) 21mg capsule, 1 cap, Drug form: MISC, Route: PO, Bedtime, 02/24/17 21:00:00 CDT, Duration: 30 day, Stop date: 03/25/17 21:00:00 CDT Start Date: 02/24/17 Stop Date: 03/10/17 Status: Discontinued senna 8.6 mg oral tablet 8.6 mg, 1 tab, Route: PO, Drug Form: TAB, Dosing Weight 92.472, kg, BID, PRN as needed for constipation, Start date: 03/05/17 20:09:00 CDT, Duration: 30 day, St op date: 04/04/17 20:08:00 [employer] Notes: (Same as: Senokot) Start Date: 03/05/17 Stop Date: 03/10/17 Status: Discontinued SEROquel 12.5 mg, 0.5 tab, Route: PO, Drug form: TAB, Q12H, Dosing Weight 86.364, kg, PRN Agitation, Start date: 02/24/17 17:12:00 CDT, Duration: 30 day, Stop date: 09/06 17:11:00 CDT Notes: (Same as: SEROquel) Start Date: 02/24/17 Stop Date: 03/10/17 Status: Discontinued tramadol 25 mg, 0.5 tab, Route: PO, Drug form: TAB, ONCE, Dosing Weight 92.472, kg, Start date: 03/09/17 14:49:00 CDT, Stop date: 03/09/17 14:49:00 CDT Notes: Not to exceed 400mg/day. (Same As: Ultram) Start Date: 03/09/17 Stop Date: 03/09/17 Status: Completed tramadol 50 mg oral tablet 50 mg, 1 tab, Route: PO, Drug form: TAB, ONCE, Dosing Weight 92.472, kg, Start d ate: 03/08/17 11:58:00 CDT, Stop date: 03/08/17 11:58:00 CDT Notes: Not to exceed 400mg/day. (Same As: Ultram) Start Date: 03/08/17 Stop Date: 03/08/17 Status: Completed Vasotec 5 mg, 2 tab, Route: PO, Drug form: TAB, BID, Dosing Weight 86.364, kg, Start toya e: 02/25/17 9:00:00 CDT, Duration: 30 day, Stop date: 03/26/17 17:00:00 CDT Notes: (Same as: Vasotec) Start Date: 02/25/17 Stop Date: 03/04/17 Status: Discontinued Vasotec 10 mg, 1 tab, Route: PO, Drug form: TAB, Q12H, Dosing Weight 86.364, kg, Start d ate: 03/04/17 21:00:00 CDT, Duration: 30 day, Stop date: 04/03/17 9:00:00 REED [employer] Notes: (Same as: Vasotec) Start Date: 03/04/17 Stop Date: 03/10/17 Status: Discontinued Vitamin D2 50,000 IntlUnit, 1 cap, Route: PO, Drug form: CAP, qWeek, Dosing Weight 86.364, kg, Start date: 02/26/17 10:00:00 CDT, Duration: 5 doses or times, Stop date: 9:00:00 CDT Notes: (Same as: Vitamin D) "Do Not Crush" Start Date: 02/26/17 Stop Date: 03/10/17 Status: Discontinued Results ELECTROLYTES Most recent to 1 2 oldest [Reference Range]: Sodium Lvl [135-145 142 mEq/L 141 mEq/L mEq/L] (03/07/17 5:48 AM) (02/25/17 4:44 AM) Potassium Lvl 3.9 mEq/L 4.0 mEq/L [3.5-5.1 mEq/L] (03/07/17 5:48 AM) (02/25/17 4:44 AM) Chloride Lvl [95-109 108 mEq/L 108 mEq/L mEq/L] (03/07/17 5:48 AM) (02/25/17 4:44 AM) CO2 [24-32 mEq/L] 25 mEq/L 26 mEq/L (03/07/17 5:48 AM) (02/25/17 4:44 AM) AGAP [10.0-20.0 12.9 mEq/L 11.0 mEq/L mEq/L] (03/07/17 5:48 AM) (02/25/17 4:44 AM) CHEM PANEL Most recent to 1 2 oldest [Reference Range]: Creatinine Lvl 1.00 mg/dL 1.00 mg/dL [0.50-1.40 mg/dL] (03/07/17 5:48 AM) (02/25/17 4:44 AM) eGFR 53 mL/min/1.73m2 1 53 mL/min/1.73m2 2 *NA* *NA* (03/07/17 5:48 AM) (02/25/17 4:44 AM) BUN [7-22 mg/dL] 21 mg/dL 22 mg/dL (03/07/17 5:48 AM) (02/25/17:44 AM) Glucose Lvl [70-99 130 mg/dL 135 mg/dL mg/dL] *HI* *HI* (03/07/17 5:48 AM) (02/25/17 4:44 AM) Albumin Lvl [3.5-5.0 3.6 g/dL g/dL] (02/25/17:44 AM) Calcium Lvl 9.6 mg/dL 9.9 mg/dL [8.5-10.5 mg/dL] (03/07/17 5:48 AM) (02/25/17:44 AM) Phosphorus [2.5-4.5 2.8 mg/dL 2.7 mg/dL mg/dL] (03/07/17 5:48 AM) (02/25/17:44 AM) Magnesium Lvl 2.0 mg/dL [1.8-2.4 mg/dL] (03/07/17 5:48 AM) Vitamin D, 25-OH, 23.7 ng/mL Total [30.0-100.0 *LOW* ng/mL] (02/25/17 4:44 AM) 1Result Comment: The eGFR is calculated using [...] be mul tiplied by the estimated BMI. 2Result Comment: The eGFR is calculated using the [...] be mul tiplied by the estimated BMI. IMMUNOLOGY Most recent to 1 2 oldest [Reference Range]: Prealbumin 28.9 mg/dL 24.7 mg/dL [18.0-45.0 mg/dL] (02/25/17 4:44 AM) (02/24/17 6:30 PM) HEMATOLOGY Most recent to 1 2 oldest [Reference Range]: WBC [3.7-10.4 K/CMM] 7.9 K/CMM 7.2 K/CMM (03/08/17 3:30 PM) (02/25/17 4:44 AM) RBC [4.20-5.40 4.35 M/CMM 4.47 M/CMM M/CMM] (03/08/17 3:30 PM) (02/25/17 4:44 AM) Hgb [12.0-16.0 g/dL] 12.9 g/dL 13.0 g/dL (03/08/17 3:30 PM) (02/25/17 4:44 AM) Hct [36.0-48.0 %] 38.2 % 38.8 % (03/08/17 3:30 PM) (02/25/17 4:44 AM) MCV [80.0-98.0 fL] 87.7 fL 86.9 fL (03/08/17 3:30 PM) (02/25/17 4:44 AM) MCH [27.0-31.0 pg] 29.6 pg 29.2 pg (03/08/17 3:30 PM) (02/25/17 4:44 AM) MCHC [32.0-36.0 33.8 g/dL 33.6 g/dL g/dL] (03/08/17 3:30 PM) (02/25/17 4:44 AM) RDW [11.5-14.5 %] 13.4 % 13.1 % (03/08/17 3:30 PM) (02/25/17 4:44 AM) Platelet [133-450 267 K/CMM 270 K/CMM K/CMM] (03/08/17 3:30 PM) (02/25/17 4:44 AM) MPV [7.4-10.4 fL] 8.7 fL 9.1 fL (03/08/17 3:30 PM) (02/25/17 4:44 AM) Segs [45.0-75.0 %] 61.4 % 55.7 % (03/08/17 3:30 PM) (02/25/17 4:44 AM) Lymphocytes 28.1 % 28.8 % [20.0-40.0 %] (03/08/17 3:30 PM) (02/25/17 4:44 AM) Monocytes [2.0-12.0 5.8 % 6.5 % %] (03/08/17 3:30 PM) (02/25/17 4:44 AM) Eosinophils [0.0-4.0 4.1 % 8.5 % %] *HI* *HI* (03/08/17 3:30 PM) (02/25/17 4:44 AM) Basophils [0.0-1.0 0.6 % 0.5 % %] (03/08/17 3:30 PM) (02/25/17 4:44 AM) Segs-Bands # 4.8 K/CMM 4.0 K/CMM [1.5-8.1 K/CMM] (03/08/17 3:30 PM) (02/25/17 4:44 AM) Lymphocytes # 2.2 K/CMM 2.1 K/CMM [1.0-5.5 K/CMM] (03/08/17 3:30 PM) (02/25/17 4:44 AM) Monocytes # [0.0-0.8 0.5 K/CMM 0.5 K/CMM K/CMM] (03/08/17 3:30 PM) (02/25/17 4:44 AM) Eosinophils # 0.3 K/CMM 0.6 K/CMM [0.0-0.5 K/CMM] (03/08/17 3:30 PM) *HI* (02/25/17 4:44 AM) PT [12.0-14.7 13.2 seconds seconds] (02/25/17 4:44 AM) INR [0.85-1.17] 0.98 (02/25/17 4:44 AM) PTT [22.9-35.8 30.9 seconds seconds] (02/25/17 4:44 AM) Immunizations Given and Recorded Vaccine Date Status [...] No Assessment and Plan Extracted from: Title: Progress Note * Author: Irvin Menchaca DO Date: 03/10/17 Impression and Plan 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 Courtney continue with antiplatelet therapy as well as statin We will continue to monitor blood pressure Continue with physical, occupational and speech therapy Discussed plan with patient at bedside Extracted from: Title: Clinical Document Author: Christiano Lyons MD Date: 02/24/17 *_*_* PHYSICAL MEDICINE AND REHABILITATION H&P DOA: 02/24/17 Admitting Diagnosis: 1. Right Mackenzie Radiata stroke 2. Partial left hemiplegia 3. dementia 4. hyperglycemia 5. Hyperlipidemia 6. Hypertension 7. Alterations in mobility, ADLS/IADLS, cognition HISTORY OF PRESENT ILLNESS: Ms. Zapata is a pleasant 82-year-old lady. She requires supervision in the home, does have chronic cognitive impairments, but overall was independent with mobility, ADLs, IADLs, bathing, dressing, grooming. She did use a walker in the house and sometimes a manual wheelchair for longer distance community. She has a hired caregiving in the home and stays with her granddaughter and [id number]. She was admitted to [facility] on 02/19. Per the report, over 2 to 3 days, she had had some facial droop. Left-sided weakness. In the primary care doctor who felt that it was a transient ischemic attack and had a do not advise them to follow up as an outpatient for CT scan. She then had progression of her symptoms and at that time, they brought her into [facility]. She was out of the time frame for the TPA. Stroke workup revealed an acute ischemic right mackenzie radiata stroke. There is also old chronic microvascular senescent changes. She has some mild hyperglycemia. She has hyperlipidemia and has hypertension. The transthoracic echocardiograms were benign. No evidence for cardiac arrhythmia. The MRA of the brain showed some stenosis in the distal left MCA distal A1 segment of the right ELGIN and decreased flow in the left posterior communicating artery. Carotid Doppler showed no significant flow-limiting lesions. She has begun working with physical therapy and on evaluation was requiring moderate assist with sit to stand, min assist with stand to sit min assist with the transfer over to the rolling walker. She was having difficulty lifting the left leg. In occupational therapy, she was mod assist with bed mobility, min assist with lower body dressing and max assist with toileting. She was supervision with upper body skills. After discussion with all team members she was deemed to be a good rehab candidate and after a 48 hour prescreen was [place] [facility] [place] [facility] [place] REVIEW OF SYSTEMS: She is denying fevers, chills, nausea, vomiting, chest pains, palpitations, headaches, or dizziness. She denies focal strength or sensation changes. No bowel or bladder complaints. Notably, she is not oriented, not completely sure why she is in the hospital. Other than stated above, a complete review of systems was done and negative other than the pertinent positives and negatives listed above. PAST MEDICAL HISTORY: Dementia, hypertension, diabetes mellitus, anemia, GERD, tonsillectomy. CURRENT MEDICATIONS: Reviewed and reconciled in the EMR. ALLERGIES: Sulfa drugs. FAMILY HISTORY: Hypertension, diabetes, hyperlipidemia. SOCIAL HISTORY: She lives at home with her granddaughter and [id number]. There is hired caregiving in the home. No alcohol, tobacco or drug usage. She is . 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 PHYSICAL EXAMINATION: Vitals and Temp: VitalsTmp(F)[id number] 02/24 20:05 1696 21% 02/24 20:[id number]--- 02/24 15:42----[id number]/80-------- 02/24 15:[id number]--- 24 Hr Tmax: 98.6F (37.00c) at 02/24 15:00Vital Signs are the last 5 in the past 48 hours. GENERAL: She is sitting at the edge of the bed, no apparent distress. PSYCHIATRIC: She is oriented to person but not to plates date or time. She is able to carry over a year after 2 to 3 minutes. HEENT: Pupils equal, round, reactive to light. Extraocular muscles intact. Moist mucous membranes. CARDIOVASCULAR: 2+ bilateral upper extremity pulses. Regular rate and rhythm. PULMONARY: Respirations unlabored without dyspnea at the paragraph level. ABDOMEN: Doughy, nontender, nondistended. GENITOURINARY: No Cameron. SKIN: No breakdown. NEUROMUSCULOSKELETAL: Subtle left lower facial droop. Very mild decreased initiation of left shoulder shrug. Otherwise, cranial nerves II-XII are intact. Strength, the left arm is 4/5, left leg is 4/5. There is no hypertonicity or clonus. The right-sided strength is unbreakable. No hypertonicity or clonus. There is decreased initiation on the left side compared to the right side. Fast and fine finger movements are delayed on the left side compared to the right side. LABORATORY DATA: This total cholesterol 208, HDL 33, LDL 127. Glucose levels between 131/60 61 C6 0.36, sodium 141, potassium 4.1, chloride 107, CO2 25, BUN 13, creatinine 1.20. WBC 6.7, hemoglobin 13.5, hematocrit 39.5, platelets 250,000. DIAGNOSTIC IMAGING: CT of the brain, carotid Doppler, transthoracic echocardiogram, MRI of the brain are reviewed as above. ASSESSMENT AND PLAN: This is an 82-year-old lady with: 1. Acute ischemic right mackenzie radiata stroke in the setting of chronic microvascular changes: Deficit include a partial left hemiplegia with altered coordination. We have discussed potential etiologies for stroke. continue stroke risk factor reduction. Neurology following. We will continue daily stroke education. Initiate rehabilitation therapies as below. 2. Hypertension, hyperlipidemia and diabetes mellitus type 2: These are currently being managed by the internal medicine services. We will work to bring the blood pressures to target levels at 140 to 160 systolic. Continue DVT prophylaxis with Lovenox. She is on dual antiplatelets with the aspirin and Plavix. She has been started on statin medication. Overall, no absolute contraindications to therapy. 3. Rehabilitation for deficits in mobility, ADLs, IADLs, weakness, incoordination and imbalance due to the above issues: Will have a cognitive evaluation completed, further education assessment baselines. Based on the patient's prior level of function at home support and medical condition, she is appropriate for acute intensive inpatient rehabilitation. She will be able to tolerate 3 hours of therapy per day. She does have PT and OT needs. She has cognitive therapy needs. She would be expected make fair progress in a reasonable amount of time goals are to discharge to home, but would be at 24-hour supervision. She could likely get to a point of him off assistance, but described that with the balance impairments dementia, she would need somebody supervising her. Goals are for supervision to CGA in all domains. A 48 hour prescreen has been completed. This is the 24 hour physician concurrence. An IPOC will be formulated. ELOS: 12 days with plan to go home with family.
[2018-10-02] MEDS ORDERED: METOPROLOL TARTRATE INJ 1 MG/ML VIAL IV STA (22:17)
[2018-10-02] MEDS ORDERED: METOPROLOL TARTRATE INJ 1 MG/ML VIAL ONE (22:18)
[2018-10-02 22:31] LABS: BASOPHILS % 0.4 % (0.0-1.0); EOSINOPHILS # (AUTO) 0.4 (0.0-0.4); EOSINOPHILS % 6.1 % (0.0-6.0); HEMATOCRIT 41.2 % (34.2-44.1); HEMOGLOBIN 13.9 g/dL (12.0-16.0); LYMPHOCYTES # (AUTO) 2.2 (1.0-3.2); LYMPHOCYTES % 32.4 % (18.0-39.1); MEAN CORPUSCULAR HEMOGLOBIN 29.1 pg (28-32); MEAN CORPUSCULAR HGB CONC 33.7 g/dL (31-35); MEAN CORPUSCULAR VOLUME 86.4 fL (81-99); MONOCYTES # (AUTO) 0.4 (0.2-0.8); MONOCYTES % 6.1 % (4.4-11.3); NEUTROPHILS # (AUTO) 3.7 (2.1-6.9); NEUTROPHILS % 54.7 % (38.7-80.0); PLATELET COUNT 282 x10e3/uL (140-360); RED BLOOD COUNT 4.77 x10e6/uL (3.6-5.1); RED CELL DISTRIBUTION WIDTH 13.1 % (11.7-14.4)
[2018-10-02 22:45] LABS: ALANINE AMINOTRANSFERASE 7 IU/L (0-55); ALBUMIN/GLOBULIN RATIO 1.6 (0.8-2.0); ALKALINE PHOSPHATASE 100 IU/L (40-150); ANION GAP 13.9 mmol/L (8-16); BLOOD UREA NITROGEN 15 mg/dL (7-26); BUN/CREATININE RATIO 16 (6-25); CALCIUM 10.7 mg/dL (8.4-10.2); CARBON DIOXIDE 23 mmol/L (22-29); CHLORIDE 108 mmol/L (98-107); CREATINE KINASE 28 IU/L (29-168); CREATININE, SERUM 0.93 mg/dL (0.57-1.11); EST GLOMERULAR FILTRATION RATE 58 ML/MIN (60-); GLUCOSE 121 mg/dL (74-118); POTASSIUM 3.9 mmol/L (3.5-5.1); SODIUM 141 mmol/L (136-145)
--- NOTE | 2018-10-02 23:35 | Diagnostic Imaging Report ---
EXAMINATION: Head CT without contrast. HISTORY:Headache and hypertension. COMPARISON:Report of CT and MRI brain from 12/04/2015, prior images are not available for comparison at the time of interpretation. TECHNIQUE: Multidetector axial images were obtained from the foramen magnum to the vertex without contrast. The images were reconstructed using brain and bone algorithms. Thin section brain images were reformatted into coronal and sagittal planes. Dose modulation, iterative reconstruction, and/or weight based adjustment of the mA/kV was utilized to reduce the radiation dose to as low as reasonably achievable. Intravenous contrast: None IMAGE QUALITY: Acceptable. FINDINGS: Skull/scalp: No lytic or blastic. lesions. No surgical changes. Parenchyma: Nonspecific bilateral frontoparietal confluent and patchy subcortical/deep and periventricular white matter hypodensity are likely related to small vessel ischemic changes. Old lacunar infarct that was mentioned in prior MRI of the brain from 12/04/2015 is not well visualized in current study. No acute hemorrhage, mass or acute major vascular territorial infarct. Arteries: No density suggestive of thrombosis. Atherosclerotic calcification in bilateral carotid siphon and V4 segment of the vertebral arteries. Dural sinuses: No abnormal density suggestive of thrombosis. Ventricles: Moderate compensated dilatation due to volume loss. No acute hydrocephalus. Extra-axial spaces: No abnormal density. Brain volume: Generalized age-related cerebral volume loss. Craniocervical junction: No mass, Chiari malformation, or basilar invagination. Sella: No mass. Paranasal/mastoid sinuses: Imaged portions unremarkable. IMPRESSION: 1. No acute intracranial abnormality, particularly no acute hemorrhage, mass or acute major vascular territorial infarct. 2. Severe supratentorial white matter microvascular ischemic changes. 3. Generalized age-related cerebral volume loss. Signed by: Dr. Sherrill Leon M.D. on 10/02/2018 11:32 PM
[2018-10-03 00:20] VITALS: BP 156/94
== END 2018-10-03 00:21 | disposition home or self-care (01) ==
LOC: ER 22:08
DX: I10 Essential (primary) hypertension (principal); F03.90 Unspecified dementia, unspecified severity, without behavioral disturbance, psychotic disturbance, mood disturbance, and anxiety; Z96.641 Presence of right artificial hip joint
CPT/HCPCS: 36415; 70450; 80053; 82550; 82553; 84484; 85025; 93005; 96374; 99284

== ENCOUNTER 2020-05-26 15:18 | Inpatient (IN) | payer MEDICARE ==
[~2020-05-26] VITALS: Ht 180.3 cm; Wt 95.3 kg
[2020-05-26] MEDS ORDERED: ASPIRIN 81 MG CHEW TAB PO ONE (16:45)
[2020-05-26 17:45] LABS: BASOPHILS % 0.3 % (0.0-1.0); EOSINOPHILS # (AUTO) 0.2 (0.0-0.4); EOSINOPHILS % 2.3 % (0.0-6.0); HEMATOCRIT 41.3 % (34.2-44.1); HEMOGLOBIN 13.7 g/dL (12.0-16.0); LYMPHOCYTES # (AUTO) 1.6 (1.0-3.2); LYMPHOCYTES % 20.7 % (18.0-39.1); MEAN CORPUSCULAR HGB CONC 33.2 g/dL (31-35); MEAN CORPUSCULAR VOLUME 90.4 fL (81-99); MONOCYTES # (AUTO) 0.4 (0.2-0.8); MONOCYTES % 5.6 % (4.4-11.3); NEUTROPHILS # (AUTO) 5.6 (2.1-6.9); NEUTROPHILS % 70.8 % (38.7-80.0); PLATELET COUNT 250 x10e3/uL (140-360); RED BLOOD COUNT 4.57 x10e6/uL (3.6-5.1); RED CELL DISTRIBUTION WIDTH 12.6 % (11.7-14.4)
[2020-05-26] MEDS ORDERED: DIGOXIN INJ 0.25 MG/ML 2 ML AMP IV STA (17:53)
[2020-05-26 17:54] LABS: INR 0.98; PROTHROMBIN TIME 13.6 seconds (11.9-14.5)
[2020-05-26 18:04] LABS: ALBUMIN 3.8 g/dL (3.5-5.0); ALBUMIN/GLOBULIN RATIO 1.6 (0.8-2.0); ANION GAP 14.7 mmol/L (8-16); CALCIUM 9.7 mg/dL (8.4-10.2); CREATININE, SERUM 0.91 mg/dL (0.57-1.11); POTASSIUM 3.7 mmol/L (3.5-5.1)
[2020-05-26 18:18] LABS: CREATINE KINASE MB 1.8 ng/mL (0-5.0)
[2020-05-26] MEDS ORDERED: DILTIAZEM HCL 5 MG/ML 5 ML VIAL IV STA (18:42)
[2020-05-27] VITALS (9 sets, daily range): BP systolic 127–159; BP diastolic 82–108
[2020-05-27] MEDS ORDERED: DILTIAZEM HCL 5 MG/ML 5 ML VIAL IV STA (01:42)
[2020-05-27] MEDS ORDERED: ZIPRASIDONE 20 MG VIAL IM STA (01:42)
[2020-05-27] MEDS ORDERED: LORAZEPAM INJ 2 MG/ML VIAL IV STA (01:42)
[2020-05-27 04:29] LABS: BASOPHILS % 0.3 % (0.0-1.0); EOSINOPHILS # (AUTO) 0.3 (0.0-0.4); EOSINOPHILS % 3.3 % (0.0-6.0); HEMATOCRIT 41.4 % (34.2-44.1); HEMOGLOBIN 13.6 g/dL (12.0-16.0); LYMPHOCYTES # (AUTO) 1.7 (1.0-3.2); LYMPHOCYTES % 21.1 % (18.0-39.1); MEAN CORPUSCULAR HEMOGLOBIN 29.8 pg (28-32); MEAN CORPUSCULAR HGB CONC 32.9 g/dL (31-35); MEAN CORPUSCULAR VOLUME 90.8 fL (81-99); MONOCYTES # (AUTO) 0.6 (0.2-0.8); MONOCYTES % 7.1 % (4.4-11.3); NEUTROPHILS # (AUTO) 5.4 (2.1-6.9); NEUTROPHILS % 67.9 % (38.7-80.0); PLATELET COUNT 252 x10e3/uL (140-360); RED BLOOD COUNT 4.56 x10e6/uL (3.6-5.1)
[2020-05-27 04:48] LABS: ALANINE AMINOTRANSFERASE 8 IU/L (0-55); ALBUMIN 3.9 g/dL (3.5-5.0); ALBUMIN/GLOBULIN RATIO 1.5 (0.8-2.0); ALKALINE PHOSPHATASE 60 IU/L (40-150); ANION GAP 15.7 mmol/L (8-16); BLOOD UREA NITROGEN 18 mg/dL (7-26); BUN/CREATININE RATIO 22 (6-25); CALCIUM 9.8 mg/dL (8.4-10.2); CARBON DIOXIDE 22 mmol/L (22-29); CHLORIDE 107 mmol/L (98-107); CREATININE, SERUM 0.83 mg/dL (0.57-1.11); EST GLOMERULAR FILTRATION RATE > 60 ML/MIN (60-); GLUCOSE 112 mg/dL (74-118); POTASSIUM 3.7 mmol/L (3.5-5.1); SODIUM 141 mmol/L (136-145)
[2020-05-27 05:04] LABS: CREATINE KINASE MB 3.4 ng/mL (0-5.0)
[2020-05-27 05:09] LABS: FREE THYROXINE INDEX 2.4553 (1.4-3.8); THYROID STIMULATING HORMONE 1.533 uIU/mL (0.350-4.940)
[2020-05-27 11:11] LABS: CREATINE KINASE MB 3.6 ng/mL (0-5.0)
[2020-05-27] MEDS ORDERED: LORAZEPAM INJ 2 MG/ML VIAL IV ONE (15:40)
[2020-05-27 19:24] LABS: CREATINE KINASE MB 3.8 ng/mL (0-5.0)
[2020-05-27] MEDS: ATORVASTATIN 20 MG TAB PO SCH (20:59)
[2020-05-28] VITALS (9 sets, daily range): BP systolic 113–147; BP diastolic 69–90
[2020-05-28] MEDS ORDERED: METOPROLOL TARTRATE INJ 1 MG/ML VIAL IV ONE (09:15)
[2020-05-28] MEDS: ENOXAPARIN 30 MG/0.3 ML SYR SC SCH ×2 (10:06→21:30)
[2020-05-28] MEDS: ASPIRIN 325 MG TAB PO SCH (10:26)
[2020-05-28] MEDS ORDERED: METOPROLOL TARTRATE INJ 1 MG/ML VIAL IV PRN (10:45)
[2020-05-28] MEDS ORDERED: IOPAMIDOL 370 MG/ML 200 ML INFUS..BTL INJ ONE (13:03)
[2020-05-28] MEDS ORDERED: SODIUM CHLORIDE 0.9% 100 ML ONE (13:03)
[2020-05-28] MEDS: METOPROLOL TARTRATE 25 MG TAB PO SCH (17:36)
[2020-05-28] MEDS: ATORVASTATIN 20 MG TAB PO SCH (21:30)
[2020-05-29] VITALS (8 sets, daily range): BP systolic 108–146; BP diastolic 69–95
[2020-05-29] MEDS: METOPROLOL TARTRATE 25 MG TAB PO SCH ×2 (09:00→16:56)
[2020-05-29] MEDS: ENOXAPARIN 30 MG/0.3 ML SYR SC SCH ×2 (09:00→20:03)
[2020-05-29] MEDS: ASPIRIN 325 MG TAB PO SCH (09:00)
[2020-05-29] MEDS: ATORVASTATIN 20 MG TAB PO SCH (20:03)
[2020-05-30] VITALS: BP 126/67
[2020-05-30 07:25] VITALS: BP 139/91
[2020-05-30 08:07] VITALS: BP 139/91
[2020-05-30] MEDS: ASPIRIN 325 MG TAB PO SCH (08:58)
[2020-05-30] MEDS: METOPROLOL TARTRATE 25 MG TAB PO SCH ×2 (08:59→16:51)
[2020-05-30] MEDS: ENOXAPARIN 30 MG/0.3 ML SYR SC SCH (08:59)
[2020-05-30 11:00] VITALS: BP 156/126
[2020-05-30 12:45] VITALS: BP 145/71
[2020-05-30 14:59] VITALS: BP 134/80
[2020-05-30] MEDS ORDERED: LIPITOR20 MG PO (15:58)
[2020-05-30] MEDS ORDERED: LOPRESSOR25 MG PO (15:59)
[2020-05-30] MEDS ORDERED: ELIQUIS2.5 MG PO (16:02)
[2020-05-30] MEDS ORDERED: APIXAB 2.5 MG TABLET PO SCH (17:00)
== END 2020-05-30 17:15 | disposition hospice, home (50) | DRG 65 ==
LOC: ER 15:45 → ERHOLD 18:42 → MED/SURG3 05-27 08:09
DX: I63.9 Cerebral infarction, unspecified (principal); K92.1 Melena; I48.91 Unspecified atrial fibrillation; Z79.01 Long term (current) use of anticoagulants; R62.7 Adult failure to thrive; Z68.29 Body mass index [BMI] 29.0-29.9, adult; I10 Essential (primary) hypertension; F03.90 Unspecified dementia, unspecified severity, without behavioral disturbance, psychotic disturbance, mood disturbance, and anxiety; Z20.822 Contact with and (suspected) exposure to COVID-19; M19.90 Unspecified osteoarthritis, unspecified site
CPT/HCPCS: 36415; 70450; 70496; 70498; 70551; 71045; 80053; 80061; 82270; 82550; 82553; 82607; 83036; 83090; 83880; 84436; 84443; 84479; 84484; 85025; 85610; 86850; 86900; 87086; 93005; 93306; 93880; 96360; 99285; J1160; J1650; J2060; J3486; J7050; Q9967; U0002